=== PATIENT | female | born 1950 | race Caucasian/White ===

== ENCOUNTER 2018-09-26 09:45 | Outpatient (CLI) | payer MEDICARE, BC, SELFPAY ==
[2018-09-26 11:11] LABS: Abs Immature Grans 0.02 k/cumm (0.0-0.09); Absolute Basophil Count 0.02 k/cumm (0.0-0.2); Absolute Eosinophil Count 0.19 k/cumm (0.0-0.7); Absolute Lymphocyte Count 1.59 k/cumm (1.2-3.4); Absolute Monocyte Count 0.42 k/cumm (0.11-0.7); Absolute Neutrophil Count 2.71 k/cumm (1.2-6.7); Basophils % 0.4; Eosinophils % 3.8; HCT 39.7 % (36.0-46.0); HGB 13.1 g/dL (12.0-15.5); Immature Grans % 0.4; Lymphocytes % 32.1; Mean Corpuscular Hemoglobin 28.9 pg (27.0-33.0); Mean Corpuscular Volume 87.6 fL (80-95); Mean Platelet Volume 10.6 fL (8.0-11.0); Monocytes % 8.5; Neutrophils % 54.8; Platelet Count 214 x1000/uL (130-400); RBC 4.53 m/cumm (4.00-5.20); RBC Distribution Width 13.2 % (11.7-14.6); White Blood Cell Count 4.95 k/cumm (4.4-10.8)
[2018-09-26 12:25] LABS: ALT 42 U/L (12-78); AST 19 U/L (15-37); Alkaline Phosphatase 88 U/L (46-116); Anion Gap 8.5 mmol/L (3-11); BUN 18 mg/dL (7-18); Bilirubin, Total 0.3 mg/dL (0.2-1.0); C-Reactive Protein 0.57 mg/dL (0.0-0.3); CO2 30.5 mmol/L (21.0-32.0); CREATININE 0.82 mg/dL (0.55-1.02); Calcium 9.9 mg/dL (8.5-10.1); Chloride 103 mmol/L (98-107); Glucose 112 mg/dL (70-100); Potassium 4.2 mmol/L (3.5-5.1); Sodium 142 mmol/L (136-145); TSH (W/Ref FT4) 1.56 uIU/mL (0.358-3.74); Total Protein 7.2 g/dL (6.4-8.2)
[2018-09-26 14:52] LABS: Cholesterol 237 mg/dL (50-200); HDL Cholesterol 53 mg/dL (40-60); LDL CHOLESTEROL 159 mg/dL (<100); Triglyceride 153 mg/dL (30-150)
== END 2018-09-26 10:05 ==
PROVIDERS: PCP Family Medicine; Visit Provider Family Medicine
DX: I10 Essential (primary) hypertension (principal); E03.9 Hypothyroidism, unspecified; R53.83 Other fatigue; M06.9 Rheumatoid arthritis, unspecified; Z79.899 Other long term (current) drug therapy
CPT/HCPCS: 36415; 80053; 80061; 83721; 84443; 85025; 86140

== ENCOUNTER 2018-09-27 11:34 | Outpatient (REF) | payer MEDICARE, BC, SELFPAY ==
[2018-10-08 14:40] LABS: Helicobacter pylori Ag, Feces Negative (NEGAT)
== END 2018-09-27 11:54 ==
LOC: LBN 11:34
PROVIDERS: PCP Family Medicine; Visit Provider Family Medicine
DX: R10.9 Unspecified abdominal pain (principal); K21.0 Gastro-esophageal reflux disease with esophagitis
CPT/HCPCS: 87338

== ENCOUNTER 2019-03-04 02:35 | Outpatient (CLI) | payer MEDICARE, BC, SELFPAY ==
[2019-03-04 11:07] LABS: Abs Immature Grans 0.01 k/cumm (0.0-0.09); Absolute Basophil Count 0.02 k/cumm (0.0-0.2); Absolute Eosinophil Count 0.16 k/cumm (0.0-0.7); Absolute Lymphocyte Count 2.15 k/cumm (1.2-3.4); Absolute Monocyte Count 0.44 k/cumm (0.11-0.7); Absolute Neutrophil Count 3.42 k/cumm (1.2-6.7); Basophils % 0.3; Eosinophils % 2.6; HCT 41.8 % (36.0-46.0); HGB 13.5 g/dL (12.0-15.5); Immature Grans % 0.2; Lymphocytes % 34.7; Mean Corp. HGB Concentration 32.3 g/dL (32.0-36.0); Mean Corpuscular Hemoglobin 28.4 pg (27.0-33.0); Mean Platelet Volume 10.4 fL (8.0-11.0); Monocytes % 7.1; Neutrophils % 55.1; Platelet Count 209 x1000/uL (130-400); RBC 4.75 m/cumm (4.00-5.20); RBC Distribution Width 13.4 % (11.7-14.6)
[2019-03-04 11:15] LABS: ALT 34 U/L (12-78); AST 19 U/L (15-37); Albumin 4.2 g/dL (3.4-5.0); Alkaline Phosphatase 82 U/L (46-116); Anion Gap 10.1 mmol/L (3-11); BUN 24 mg/dL (7-18); Bilirubin, Total 0.3 mg/dL (0.2-1.0); C-Reactive Protein 0.29 mg/dL (0.0-0.3); CO2 29.9 mmol/L (21.0-32.0); CREATININE 0.95 mg/dL (0.55-1.02); Calcium 10.1 mg/dL (8.5-10.1); Chloride 101 mmol/L (98-107); Estimated GFR 58.33 (mL/min/1.73m2); Glucose 106 mg/dL (70-100); Potassium 4.1 mmol/L (3.5-5.1); Sodium 141 mmol/L (136-145); Total Protein 7.2 g/dL (6.4-8.2)
== END 2019-03-04 02:55 ==
PROVIDERS: PCP Family Medicine; Visit Provider Internal Medicine Rheumatology
DX: M06.9 Rheumatoid arthritis, unspecified (principal); Z79.899 Other long term (current) drug therapy
CPT/HCPCS: 36415; 80053; 85025; 86140

== ENCOUNTER 2019-08-21 02:07 | Outpatient (CLI) | payer MEDICARE, BC, SELFPAY ==
[2019-08-21 10:38] LABS: Abs Immature Grans 0.02 k/cumm (0.0-0.09); Absolute Basophil Count 0.02 k/cumm (0.0-0.2); Absolute Eosinophil Count 0.12 k/cumm (0.0-0.7); Absolute Monocyte Count 0.45 k/cumm (0.11-0.7); Basophils % 0.4; Eosinophils % 2.1; HCT 40.7 % (36.0-46.0); Immature Grans % 0.4; Lymphocytes % 35.7; Mean Corp. HGB Concentration 31.9 g/dL (32.0-36.0); Mean Corpuscular Hemoglobin 28.6 pg (27.0-33.0); Mean Corpuscular Volume 89.5 fL (80-95); Mean Platelet Volume 10.3 fL (8.0-11.0); Neutrophils % 53.4; Platelet Count 234 x1000/uL (130-400); RBC 4.55 m/cumm (4.00-5.20); RBC Distribution Width 13.3 % (11.7-14.6); White Blood Cell Count 5.61 k/cumm (4.4-10.8)
[2019-08-21 11:50] LABS: ALT 27 U/L (14-59); AST 16 U/L (15-37); Albumin 4.1 g/dL (3.4-5.0); Alkaline Phosphatase 86 U/L (46-116); Anion Gap 6.1 mmol/L (3-11); BUN 24 mg/dL (7-18); Bilirubin, Total 0.3 mg/dL (0.2-1.0); C-Reactive Protein 0.25 mg/dL (0.0-0.3); CO2 31.9 mmol/L (21.0-32.0); CREATININE 0.93 mg/dL (0.55-1.02); Calcium 9.9 mg/dL (8.5-10.1); Chloride 105 mmol/L (98-107); Estimated GFR 59.78 (mL/min/1.73m2); Glucose 107 mg/dL (70-100); Sodium 143 mmol/L (136-145); Total Protein 7.1 g/dL (6.4-8.2)
== END 2019-08-21 02:27 ==
PROVIDERS: PCP Family Medicine; Visit Provider Family Medicine
DX: M06.9 Rheumatoid arthritis, unspecified (principal); Z79.899 Other long term (current) drug therapy
CPT/HCPCS: 36415; 80053; 85025; 86140

== ENCOUNTER 2019-12-11 10:41 | Outpatient (CLI) | payer MEDICARE, BC, SELFPAY ==
[2019-12-11 13:08] LABS: Abs Immature Grans 0.01 k/cumm (0.0-0.09); Absolute Basophil Count 0.02 k/cumm (0.0-0.2); Absolute Eosinophil Count 0.12 k/cumm (0.0-0.7); Absolute Lymphocyte Count 1.99 k/cumm (1.2-3.4); Absolute Monocyte Count 0.42 k/cumm (0.11-0.7); Absolute Neutrophil Count 3.18 k/cumm (1.2-6.7); Basophils % 0.3; Eosinophils % 2.1; HCT 40.9 % (36.0-46.0); HGB 13.4 g/dL (12.0-15.5); Immature Grans % 0.2 %; Lymphocytes % 34.7; Mean Corp. HGB Concentration 32.8 g/dL (32.0-36.0); Mean Corpuscular Hemoglobin 28.8 pg (27.0-33.0); Mean Corpuscular Volume 87.8 fL (80-95); Monocytes % 7.3; Neutrophils % 55.4; Platelet Count 231 x1000/uL (130-400); RBC 4.66 m/cumm (4.00-5.20); RBC Distribution Width 13.5 % (11.7-14.6); White Blood Cell Count 5.74 k/cumm (4.4-10.8)
[2019-12-11 13:43] LABS: ALT 26 U/L (14-59); AST 16 U/L (15-37); Albumin 4.1 g/dL (3.4-5.0); Alkaline Phosphatase 87 U/L (46-116); Anion Gap 7.7 mmol/L (3-11); BUN 20 mg/dL (7-18); Bilirubin, Total 0.4 mg/dL (0.2-1.0); CO2 32.3 mmol/L (21.0-32.0); CREATININE 0.86 mg/dL (0.55-1.02); Calculated LDL 168 mg/dL (<100); Chloride 103 mmol/L (98-107); Cholesterol 263 mg/dL (<200); Glucose 98 mg/dL (74-106); HDL Cholesterol 55 mg/dL (40-60); Potassium 3.9 mmol/L (3.5-5.1); Sodium 143 mmol/L (136-145); TSH (W/Ref FT4) 1.99 uIU/mL (0.36-3.74); Total Protein 7.1 g/dL (6.4-8.2); Triglyceride 201 mg/dL (<150); Vitamin B12 585 pg/mL (193-986)
[2019-12-11 13:56] LABS: Vitamin D 25 Total 39.5 ng/ml (30-100)
== END 2019-12-11 11:01 ==
PROVIDERS: PCP Family Medicine; Visit Provider Family Medicine
DX: E03.9 Hypothyroidism, unspecified (principal); I10 Essential (primary) hypertension; K21.0 Gastro-esophageal reflux disease with esophagitis; Q38.3 Other congenital malformations of tongue; D64.9 Anemia, unspecified; K22.70 Barrett's esophagus without dysplasia; L40.50 Arthropathic psoriasis, unspecified
CPT/HCPCS: 36415; 80053; 80061; 82306; 85027; 82607; 84443; 85025

== ENCOUNTER 2020-03-02 01:05 | Outpatient (CLI) | payer MEDICARE, BC, SELFPAY ==
--- NOTE | 2020-03-02 10:45 | DI.MAMMO_ITS ---
EXAM: MAMMO SCREENING CLINICAL HISTORY: screening,Z12.39 TECHNIQUE: Mammograms were interpreted according to the usual protocol including computer analysis w [employer] CAD system, tomosynthesis and C-view imaging. COMPARISON: 2010 through 2017 FINDINGS: The breasts are composed of scattered fibroglandular densities, Breast Density category B. No suspicious masses or suspicious microcalcifications are seen. There are stable bilateral areas no dularity. No skin thickening or abnormal axillary lymph nodes are seen. There has been no significant change from prior exams. IMPRESSION: BI-RADS category 2, negative mammogram with benign findings. Yearly screening mammography is recomme nded. Breast density category B, scattered fibroglandular densities.
== END 2020-03-02 01:25 ==
PROVIDERS: PCP Family Medicine; Visit Provider Family Medicine
DX: Z12.31 Encounter for screening mammogram for malignant neoplasm of breast (principal)
CPT/HCPCS: 77063; 77067

== ENCOUNTER 2020-08-06 07:17 | Outpatient (CLI) | payer MEDICARE, BC, SELFPAY ==
[2020-08-10 23:15] LABS: Patient Race White; SARS-CoV-2 RNA Undetected (Undetected); SARS-CoV-2 Specimen Source Nasal
== END 2020-08-06 07:37 ==
PROVIDERS: PCP Family Medicine; Visit Provider Family Medicine
DX: J02.9 Acute pharyngitis, unspecified (principal); R59.0 Localized enlarged lymph nodes
CPT/HCPCS: U0003

== ENCOUNTER 2020-08-20 00:37 | Outpatient (CLI) | payer MEDICARE, BC, SELFPAY ==
[2020-08-20 12:35] LABS: Abs Immature Grans 0.01 10^3/uL (0.0-0.06); Absolute Basophil Count 0.04 10^3/uL (0.0-0.2); Absolute Eosinophil Count 0.09 10^3/uL (0.0-0.7); Absolute Lymphocyte Count 2.16 10^3/uL (1.2-3.4); Absolute Monocyte Count 0.66 10^3/uL (0.1-0.8); Absolute Neutrophil Count 3.49 10^3/uL (1.2-6.7); Basophils % 0.6; Eosinophils % 1.4; HCT 40.3 % (36.0-46.0); HGB 13.4 g/dL (11.2-15.7); Immature Grans % 0.2; Lymphocytes % 33.5; MCH 28.8 pg (27.0-33.0); MCHC 33.3 % (32.0-36.0); MCV 86.5 fL (80-95); MPV 10.5 fL (8.0-11.0); Monocytes % 10.2; Neutrophils % 54.1; Nucleated RBC 0 %; Platelet Count 226 10^3/uL (130-400); RBC 4.66 10^6/uL (3.93-5.22); RDW 13.1 % (11.7-14.6); RDW-SD 40.6 fL; WBC 6.45 10^3/uL (4.4-10.8)
[2020-08-20 12:45] LABS: ALT 53 U/L (14-59); AST 27 U/L (15-37); Albumin 4.2 g/dL (3.4-5.0); Alkaline Phosphatase 86 U/L (46-116); Anion Gap 8.6 mmol/L (3-11); BUN 18 mg/dL (7-18); Bilirubin, Total 0.3 mg/dL (0.2-1.0); C-Reactive Protein 0.21 mg/dL (0.0-0.3); CO2 30.4 mmol/L (21.0-32.0); CREATININE 1.02 mg/dL (0.55-1.02); Calcium 9.8 mg/dL (8.5-10.1); Chloride 101 mmol/L (98-107); Estimated GFR 53.58 (mL/min/1.73m2); Glucose 87 mg/dL (74-106); Potassium 3.4 mmol/L (3.5-5.1); Sodium 140 mmol/L (136-145); Total Protein 7.3 g/dL (6.4-8.2)
== END 2020-08-20 00:57 ==
PROVIDERS: Internal Medicine Rheumatology; PCP Family Medicine; Visit Provider Family Medicine
DX: L40.50 Arthropathic psoriasis, unspecified (principal); Z79.899 Other long term (current) drug therapy
CPT/HCPCS: 36415; 80053; 85025; 86140

== ENCOUNTER 2021-01-05 08:50 | Emergency (ER) | payer MEDICARE, BC, SELFPAY ==
[2021-01-05 08:55] VITALS: BP 141/63; PULSE 78; RESP 12; TEMP 36.7; O2SAT 98
--- NOTE | 2021-01-05 09:00 | DI.RAD_ITS ---
EXAM: XR ANKLE LT COMPLETE CLINICAL HISTORY: fall/twist last night. TECHNIQUE: 2D digital imaging was performed. COMPARISON: CR RIGHT ANKLE COMPLETE from 01/30/2013 FINDINGS: There is mild soft tissue swelling but no fracture or widening of the mortise. No osteochondral defe cts of the talar dome. The base of the 5th metatarsal is intact. Small inferior calcaneal spur is n oted. There is no evidence of osseous tarsal coalition. IMPRESSION: DATA REPOSITORY: RADIATION DOSE DELIVERED:
--- NOTE | 2021-01-05 09:28 | ED.GENADUL_ITS ---
Discharge Plan Disposition Patient Disposition: HOME Condition: Stable Discharge Details Clinical Impression: Ankle sprain Primary Care Provider: Jessica Ken ED Provider: Tavo Baum Home Meds and New Rx's Prescriptions: Continued acetaminophen [Tylenol Arthritis] 650 mg tablet extended release 650 mg PO DAILY PRNRF: 0 cholestyramine (with sugar) 4 gram powder in packet 4 gm PO DAILY RF: 0 levothyroxine 50 mcg tablet 50 mcg PO DAILY Qty: 90 RF: 12 hydrochlorothiazide 25 mg tablet 25 mg PO DAILY Qty: 90 RF: 12 Enbrel SureClick 50 MG/1 ML pen injector 50 mg SQ QWEEK RF: 0 ascorbic acid (vitamin C) 1,000 MG tablet 1 tab PO DAILY RF: 0 cetirizine [Zyrtec] 10 MG tablet 1 tab PO DAILY RF: 0 Acidophilus-Pectin 1 EACH capsule 1 cap PO DAILY RF: 0 multivitamin 1 EACH capsule 1 cap PO DAILY RF: 0 omega-3 fatty acids-fish oil 1 EACH capsule 1 cap PO DAILY RF: 0 (DME) BD Multifit Reusable Syringe 1 EACH syringe 1 ea Miscellaneous as directed Qty: 12 RF: 12 calcium carbonate-vitamin D3 1 EACH tablet 1 ea PO DAILY RF: 0 turmeric-turmeric root extract 1 EACH capsule 1 ea PO DAILY RF: 0 DGL 750 mg PO DAILY RF: 0 syringe 20ML BD See Rx Instructions IM .Q4 weeks Qty: 12 RF: 4 triamcinolone acetonide 0.1 % cream 1 applic Topical DAILY PRN (Reason: rash) Qty: 80 RF: 2 famotidine 40 mg tablet 40 mg PO QHS Qty: 90 RF: 4 sumatriptan succinate 100 mg tablet 100 mg PO ONCE Qty: 9 RF: 12 (DME) BD Regular Bevel [place] 21 gauge x 1 needle 1 ea IM as directed Qty: 12 RF: 0 fluconazole [Diflucan] 150 mg tablet 150 mg PO Q3D Qty: 1 RF: 1 ozuzrje-kurwcqeqxh-POT-caff [Fiorinal-Codeine #3] 19-50-343-40 mg capsule 1 cap PO TID PRN PRN (Reason: headache) Qty: 60 RF: 0 omeprazole 40 mg capsule,delayed release(DR/EC) 40 mg PO DAILY Qty: 90 RF: 4 folic acid 1 mg tablet 1 mg PO DAILY Qty: 90 RF: 12 estradiol [Vagifem] 10 mcg tablet 10 mcg VG 2X Week Qty: 25 RF: 12 cyanocobalamin (vitamin B-12) 1,000 mcg/mL solution 1,000 mcg IM month Qty: 6 RF: 12 Discharge Instructions Instructions: Ankle Sprain (ED) Additional Instructions: Wear splint as needed, advance activity as tolerated. Rest, elevate, cool compresses every 2 hours for 20 minutes. Ynqk-sms-yfaqddf medication such as Tylenol as directed for discomfort. Please watch for new or worsening symptoms and return to the ER for any concerns. I do recommend following up with your primary care provider in the next 5-7 days for reevaluation Medical Decision Making 70-year-old female, not anticoagulated, presents for left ankle injury she sustained last night. Stepped awkwardly, missing the last step, falling onto the stair landing, did not fall down the stairs. She did not strike her head. Denies any other injuries. Will obtain x-ray of the left ankle and reassess. X-ray of the left ankle read by radiology as soft tissue swelling but no fracture or dislocation. Discussed x-ray findings with patient. We discussed disposition. She is agreeable to a ankle splint but declines crutches or cane. Medical Records Medical records reviewed: Yes I reviewed the patient's medical records. HPI General Mode of arrival: ambulatory . Date/Time Provider Initiated Documentation: 01/05/21 09:00 . Limitations to Documentation: no limitations . Information obtained by: patient . HPI Narrative: This is a 70-year-old female, past medical history of psoriatic arthritis, presenting to the ER today complaining of a left ankle-foot injury she sustained yesterday. She reports that she was wearing sandals, slipped, missed the last stair and fell onto the stairs landing, did not fall down the stairs. In the process she twisted her left foot and ankle. She denies any other injuries. She denies striking her head, anticoagulation, neck pain, headache, visual change, chest pain, shortness of breath abdominal pain, nausea or vomiting. She denies any numbness or weakness. Reports tingling last night in her ankle but this has resolved. She is able to ambulate unassisted but reports the pain is worse when she ambulates, otherwise it is mild at rest. She has applied ice with minimal improvement of her symptoms. No symptoms prior to the fall. Related Data Home Medications Medication Instructions Recorded Confirmed Acidophilus-Pectin 1 cap PO DAILY 01/16/13 06/07/20 Enbrel SureClick 50 mg SQ QWEEK 01/16/13 06/07/20 ascorbic acid (vitamin C) 1 tab PO DAILY 01/16/13 06/07/20 cetirizine [Zyrtec] 1 tab PO DAILY 01/16/13 06/07/20 multivitamin 1 cap PO DAILY 01/16/13 06/07/20 omega-3 fatty acids-fish oil 1 cap PO DAILY 01/16/13 06/07/20 BD Multifit Reusable Syringe #12 syringe 09/23/13 06/07/20 Dgl 750 mg PO DAILY 12/24/17 06/07/20 calcium carbonate-vitamin D3 1 ea PO DAILY 12/24/17 06/07/20 turmeric-turmeric root extract 1 ea PO DAILY 12/24/17 06/07/20 acetaminophen 650 mg 650 mg PO DAILY PRN tab 06/20/18 06/07/20 tablet,extended release syringe 20ML BD See Rx Instructions IM .Q4 weeks 07/16/18 06/07/20 #12 triamcinolone acetonide 0.1 % 1 applic TOPICAL DAILY PRN #80 gm 08/15/18 06/07/20 topical cream cholestyramine (with sugar) 4 gram 4 gm PO DAILY each 06/12/19 06/07/20 powder for susp in a packet famotidine 40 mg tablet 40 mg PO QHS #90 tab 10/30/19 06/07/20 sumatriptan succinate 100 mg tablet 100 mg PO ONCE #9 tab-cap 01/13/20 06/07/20 needle (disp) 21 G 21 gauge x 1 #12 ndl 01/16/20 06/07/20 fluconazole 150 mg tablet 150 mg PO Q3D #1 tab 09/06/20 pephitx-lbyaexhqnf-NES-caffeine 30 1 cap PO TID PRN PRN #60 tab-cap 09/27/20 mg-50 mg-325 mg-40 mg capsule cyanocobalamin (vitamin B-12) 1,000 mcg IM month #6 vial 12/10/20 1,000 mcg/mL injection solution estradiol 10 mcg vaginal tablet 10 mcg VG 2X Week #25 tab-cap 12/10/20 folic acid 1 mg tablet 1 mg PO DAILY #90 tab 12/10/20 omeprazole 40 mg capsule,delayed 40 mg PO DAILY #90 cap 12/10/20 release hydrochlorothiazide 25 mg tablet 25 mg PO DAILY #90 tab-cap 12/14/20 12/14/20 levothyroxine 50 mcg tablet 50 mcg PO DAILY #90 tab-cap 12/14/20 12/14/20 Previous Rx's Medication Instructions Recorded syringe 20ML BD See Rx Instructions IM .Q4 weeks 07/16/18 #12 triamcinolone acetonide 0.1 % 1 applic TOPICAL DAILY PRN #80 gm 08/15/18 topical cream famotidine 40 mg tablet 40 mg PO QHS #90 tab 10/30/19 sumatriptan succinate 100 mg tablet 100 mg PO ONCE #9 tab-cap 01/13/20 needle (disp) 21 G 21 gauge x 1 #12 ndl 01/16/20 fluconazole 150 mg tablet 150 mg PO Q3D #1 tab 09/06/20 zcmcacp-lcwfoxhvvv-PBY-caffeine 30 1 cap PO TID PRN PRN #60 tab-cap 09/27/20 mg-50 mg-325 mg-40 mg capsule cyanocobalamin (vitamin B-12) 1,000 mcg IM month #6 vial 12/10/20 1,000 mcg/mL injection solution estradiol 10 mcg vaginal tablet 10 mcg VG 2X Week #25 tab-cap 12/10/20 folic acid 1 mg tablet 1 mg PO DAILY #90 tab 12/10/20 omeprazole 40 mg capsule,delayed 40 mg PO DAILY #90 cap 12/10/20 release hydrochlorothiazide 25 mg tablet 25 mg PO DAILY #90 tab-cap 12/14/20 levothyroxine 50 mcg tablet 50 mcg PO DAILY #90 tab-cap 12/14/20 Allergies Allergy/AdvReac Type Severity Reaction Status Date / Time No Known Allergies Allergy Unverified 01/05/21 08:59 General Stated Complaint: Orthopedic BETTY: 3 Review of Systems Constitutional Constitutional: Denies headache(s) and Denies weakness ENT Ears, Nose, Mouth, and Throat: Denies headache(s) and Denies neck pain Cardiovascular Cardiovascular: Denies chest pain and Denies dyspnea Respiratory Respiratory: Denies dyspnea Gastrointestinal Gastrointestinal: Denies abdominal pain, Denies nausea and Denies vomiting Musculoskeletal Musculoskeletal: Denies back pain, Denies neck pain, Denies numbness, Reports stiffness and Reports tingling Neurologic Neurologic: Denies headache(s), Denies numbness, Reports tingling and Denies weakness Hematologic/Lymphatic Hematologic/Lymphatic: Denies easy bleeding and Denies easy bruising [facility] Medical History Abdominal pain Anemia Anemia 09/06/02 TIBC 328/Hct 35, Vit B12 730 + H.Pylori resolved. repeat E GD/colonoscopy/hematology consult-resolved. 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) EGD-HIATAL HERNIA Barretts esophagus Boil of buttock 06/08/16 Boil of buttock (06/08/16) Calculus of gallbladder and bile duct w/cholecystitis w/o obstruction 12/24/15 Calculus of gallbladder without cholecystitis without obstruction (12/24/15) Cataract Colon polyp Cyst of finger Essential hypertension (07/09/13) Facial basal cell cancer Floater, vitreous OD-NEW Gastric ulcer (05/17/15) Gastroesophageal reflux disease with esophagitis EGD-Dr.K Dorsey 09/2013-Sanchez's Hiatal hernia Generalized abdominal pain 03/23/16 Generalized abdominal pain (03/23/16) GERD (gastroesophageal reflux disease) Heart murmur echo--no valvular abnormality, systolic murmur age 11. 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 intervertebral disc scoliosis and marked DJD DDD L4-5 S1 Migraine (05/11/14) Osteopenia Osteopenia Polymyalgia rheumatica 09/06/07 Psoriasis Psoriatic arthritis Tinnitus, bilateral (12/28/15) Tongue anomaly Uterine prolapse 09/06/03 s/p hysterectomy Uterine prolapse (09/06/03) Vaginal atrophy Vitamin B 12 deficiency (12/23/15) Vitreous detachment OU-STABLE Vitreous floater Watery diarrhea Watery diarrhea (02/25/15) Surgical History BAKERS CYST (~1979) Biopsy of breast microcalcifications Cholecystectomy (03/15/16) Colonoscopy - IV Sedation Endoscopy H/O endoscopy H/O knee surgery dickerson's cyst History of endoscopy History of knee surgery History of laparoscopic cholecystectomy Hx laparoscopic cholecystectomy 03/08/16 S/P breast biopsy microcalcifications S/P cholecystectomy 03/08/16 Status post breast biopsy Status post cholecystectomy Family History Mother , 88 Dementia Stroke Father , 80 Heart disease Lung cancer Brother , ACCIDENTAL at age 36. No problems noted. Brother Diabetes Heart disease Brother Esophageal cancer Maternal Grandfather , 80 Colon cancer Paternal Grandfather , 75 Dementia Maternal Grandmother , 80 Stroke Paternal Grandmother Stroke Daughter No problems noted. Daughter No problems noted. Social History Smoking/Tobacco Use Status: Never Second Hand Exposure: No Smoking risk assessment performed?: Yes Alcohol Intake: never Drug use: Never Substance use type: does not use and other Details: Medical marijuana Caregiver/Support person: No Household members: spouse, family and other Details: Disabled daughter, grandson Housing: house Communication Needs: None Do you need help understanding health information?: Rarely Pets and animals: No Sexually active: No Do you think of yourself as: straight/heterosexual Current gender identity: female and decline to answer What is your relationship status?: How often do you talk on the phone with friends or family?: once per week How often do you get together with friends or relatives?: decline to answer How often do you attend spiritism or sabianist services?: decline to answer Do you belong to any clubs or organized social groups?: no Panel score (0-1 are the most socially isolated patients): 1 What type of physical activity do you participate in: walking and yoga Duration: 30-45 minutes/day Frequency: daily Judy/Scientology: No preference Special judy needs: No Seatbelt use: always Do you feel safe at home: Yes Do you feel safe in your relationship?: Yes Exam Const General: cooperative, healthy appearing, comfortable and no acute distress Orientation: alert and awake [facility] Head: normal to inspection, normocephalic and atraumatic Eyes General: appearance normal, both eyes and all related structures Conjunctivae: conjunctivae normal Neck Neck: normal visual inspection, full ROM, trachea midline and supple Resp Effort & Inspection: normal respiratory effort and able to speak in complete sentences Cardio Rate: regular rate Rhythm: regular rhythm Skin General skin exam: no rashes or lesions noted Neuro General: patient alert, patient awake, moves all extremities and no focal motor deficits Cognition: normal cognition Speech: speech normal Gait: antalgic Motor: muscle tone normal throughout Sensory Exam: no sensory deficits noted Extrem General: full ROM and capillary refill normal Left lower extremity: full ROM, normal capillary refill, ankle Details: abnormal to inspection, tenderness Location: of the lateral malleolus, swelling Details: laterally, normal ROM and ecchymosis and foot Details: normal capillary refill and toes with normal ROM; no tenderness Psych Appearance: grossly normal Mental Status: mental status grossly normal Course Vital Signs Vital signs: Vital Signs Temperature 36.7 C 01/05/21 08:55 Pulse 78 01/05/21 08:55 Respiratory Rate 12 01/05/21 08:55 Blood Pressure 141/63 H 01/05/21 08:55 Pulse Oximetry 98 01/05/21 08:55 Temperature 36.7 C 01/05/21 08:55 Temperature Source Skin 01/05/21 08:55 Pulse 78 01/05/21 08:55 Respiratory Rate 12 01/05/21 08:55 Respiratory Effort 01/05/21 09:14 Blood Pressure 141/63 H 01/05/21 08:55 Pulse Oximetry 98 01/05/21 08:55 Oxygen Delivery Method Room Air 01/05/21 08:55 Oxygen Flow Rate 0 01/05/21 08:55 Pain Level 7 01/05/21 09:14 Comment 01/05/21 08:55
[2021-01-05 10:22] VITALS: BP 154/97; PULSE 87; RESP 14; TEMP 36.4; O2SAT 98
== END 2021-01-05 09:59 | disposition home or self-care (01) ==
PROVIDERS: Emergency Provider Physician Assistant; PCP Family Medicine
DX: S93.492A Sprain of other ligament of left ankle, initial encounter (principal); W18.43XA Slipping, tripping and stumbling without falling due to stepping from one level to another, initial encounter
CPT/HCPCS: 99283; 73610; 99282

== ENCOUNTER 2021-01-17 03:21 | Outpatient (CLI) | payer MEDICARE, BC, SELFPAY ==
[2021-01-17 10:48] LABS: Source Nasal/Nares
[2021-01-17 16:19] LABS: COVID-19 PCR Negative (Negative)
== END 2021-01-17 03:22 | disposition home or self-care (01) ==
LOC: LBO 03:22
PROVIDERS: PCP Family Medicine; Visit Provider Internal Medicine Gastroenterology
DX: Z20.822 Contact with and (suspected) exposure to COVID-19 (principal); Z01.818 Encounter for other preprocedural examination
CPT/HCPCS: 87635

== ENCOUNTER 2021-02-08 02:13 | Outpatient (CLI) | payer MEDICARE, BC, SELFPAY ==
[2021-02-08 13:01] LABS: Abs Immature Grans 0.02 10^3/uL (0.0-0.06); Absolute Basophil Count 0.05 10^3/uL (0.0-0.2); Absolute Eosinophil Count 0.16 10^3/uL (0.0-0.7); Absolute Monocyte Count 0.41 10^3/uL (0.1-0.8); Absolute Neutrophil Count 3.07 10^3/uL (1.2-6.7); Basophils % 0.8; Eosinophils % 2.7; HCT 40.1 % (36.0-46.0); HGB 12.8 g/dL (11.2-15.7); Immature Grans % 0.3; Lymphocytes % 38.3; MCH 28.8 pg (27.0-33.0); MCHC 31.9 % (32.0-36.0); MCV 90.3 fL (80-95); MPV 10.1 fL (8.0-11.0); Monocytes % 6.8; Neutrophils % 51.1; Nucleated RBC 0 %; Platelet Count 221 10^3/uL (130-400); RBC 4.44 10^6/uL (3.93-5.22); RDW-SD 43.1 fL; WBC 6.01 10^3/uL (4.4-10.8)
[2021-02-08 13:07] LABS: ALT 28 U/L (14-59); AST 14 U/L (15-37); Albumin 3.9 g/dL (3.4-5.0); Alkaline Phosphatase 91 U/L (46-116); Anion Gap 5.6 mmol/L (3-11); BUN 17 mg/dL (7-18); Bilirubin, Total 0.4 mg/dL (0.2-1.0); C-Reactive Protein 0.22 mg/dL (0.0-0.3); CO2 32.4 mmol/L (21.0-32.0); CREATININE 0.9 mg/dL (0.55-1.02); Chloride 105 mmol/L (98-107); Glucose 102 mg/dL (74-106); Potassium 5.1 mmol/L (3.5-5.1); Sodium 143 mmol/L (136-145); Total Protein 6.9 g/dL (6.4-8.2)
== END 2021-02-08 02:14 | disposition home or self-care (01) ==
LOC: LOS 02:13
PROVIDERS: PCP Family Medicine; Visit Provider Internal Medicine Rheumatology
DX: L40.50 Arthropathic psoriasis, unspecified (principal); Z79.899 Other long term (current) drug therapy
CPT/HCPCS: 36415; 80053; 85025; 86140

== ENCOUNTER 2021-03-08 02:01 | Outpatient (CLI) | payer MEDICARE, BC, SELFPAY ==
--- NOTE | 2021-03-08 10:52 | DI.MAMMO_ITS ---
Exam(s) MAMMO SCREENING EXAM: MAMMO SCREENING CLINICAL HISTORY: screening,Z12.39 TECHNIQUE: Mammograms were interpreted according to the usual protocol including computer analysis w [employer] CAD system, tomosynthesis and C-view imaging. COMPARISON: FINDINGS: The breasts are of moderate density with fairly symmetrical distribution of fibroglandular tissue. N o dominant mass or clumped microcalcification is identified in either breast. The current examinatio n is compared with multiple previous examinations including February 2020 and there is question of increas ed prominence of a focal area of asymmetric density projected in the upper outer quadrant of the left breast roughly 6-7 cm from the nipple. Additional mammographic views of this area are requested to include CC and MLO spot compression views of the left breast. No other significant change seen. IMPRESSION: Additional mammographic views are requested as described above to evaluate question focal lesion of t he upper outer quadrant of the left breast. Breast ultrasound may be indicated as well depending on the results additional mammographic views. BI-RADS Category 0 - Assessment Incomplete: Need additional imaging evaluation Breast Density - Category B - Scattered areas of fibroglandular density
== END 2021-03-08 02:21 ==
PROVIDERS: PCP Family Medicine; Visit Provider Family Medicine
DX: Z12.31 Encounter for screening mammogram for malignant neoplasm of breast (principal); R92.8 Other abnormal and inconclusive findings on diagnostic imaging of breast
CPT/HCPCS: 77063; 77067

== ENCOUNTER 2021-03-22 01:09 | Outpatient (CLI) | payer MEDICARE, BC, SELFPAY ==
--- NOTE | 2021-03-22 | DI.US_ITS ---
Exam(s) MG MAMMO SCREEN CALL BACK UNI US BREAST LT LIMITED EXAM: MG MAMMO SCREEN CALL BACK UNI and U/S breast LT limited CLINICAL HISTORY: F/U MAMMO, ? FOCAL LESION UPPER OUTER QUADRANT LT BREAST. TECHNIQUE: Craniocaudal and mediolateral oblique Full Field Digital Mammography views of the left br east with Computer Aided Diagnosis followed by Tomosynthesis and left breast ultrasound. COMPARISON: Priors available for comparison. FINDINGS: Mammography/Tomosynthesis: Masses/Architectural Distortion: There is again seen a lobulated ovoid density in the upper-outer dov drant of the left breast. This has a similar appearance compared to prior mammograms, specifically . There are few coarse calcifications now associated with the mass. Microcalcifictions: No suspicious pleomorphic-type are seen. Skin Thickening/Nipple Retraction: None. Left breast US: Echotexture: Normal appearance of the glandular tissue. Shadowing: No suspicious foci. Cyst: None. Solid lesions: At the 1 o'clock position 6 cm from the nipple in the left breast, there is an elongat ed radially oriented 1.1 x 0.2 x 0.5 cm isoechoic mass present. There are few echogenic foci which a ppear to correspond to the calcifications on the mammogram. No acoustic shadowing or enhancement is noted. Ductal dilation: None. IMPRESSION: 1. No definite evidence for malignancy. 2. A six-month follow-up left mammogram and ultrasound is recommended for re-evaluation. 3. The findings were discussed with the patient on the date of the examination. BI-RADS Category 3 - 6 month - Probably Benign Finding: Recommend follow-up imaging in 6 months Breast Density - Category B - Scattered areas of fibroglandular density Breast density Category C or D implies that the patient has dense breast tissue. Dense breast tissue can make it harder to find cancer on a mammogram. Dense breast tissue is also associated with an incr eased risk of breast cancer. This information about the result of the mammogram report was provided to the patient to raise their awareness. Use this report when you speak with the patient about their risks for breast cancer, which includes their family history. At that time, you may recommend additional screening tests (Ultrasoun d or MRI) as these tests may add significant information. A negative radiographic report should not delay biopsy if a dominant or clinically suspicious mass is present. Up to ten percent of cancers are not identified on mammography. A negative report may reinforce clinical impression. Adenosis and dense breasts may obscure an underlying neoplasm. False positive reports average 6 to 10%. Patient will receive a letter notifying them of these results.
== END 2021-03-22 01:29 ==
PROVIDERS: PCP Family Medicine; Visit Provider Family Medicine
DX: Z12.31 Encounter for screening mammogram for malignant neoplasm of breast (principal); R92.8 Other abnormal and inconclusive findings on diagnostic imaging of breast
CPT/HCPCS: 76642; 77063; 77067

== ENCOUNTER 2021-04-15 10:47 | Outpatient (CLI) | payer MEDICARE, BC, SELFPAY ==
[2021-04-16 12:59] LABS: COVID-19 RT-PCR UVMMC Result Negative (Negative)
== END 2021-04-15 10:48 | disposition home or self-care (01) ==
PROVIDERS: PCP Family Medicine; Visit Provider Family Medicine
DX: Z20.822 Contact with and (suspected) exposure to COVID-19 (principal); R51.9 Headache, unspecified
CPT/HCPCS: U0003; U0005

== ENCOUNTER 2021-06-25 14:08 | Outpatient (REF) | payer MEDICARE, BC, SELFPAY ==
[2021-06-25 16:22] LABS: Bilirubin Negative (Negative); Blood Trace-intact (Negative); Clarity Clear (Clear); Glucose Negative (Negative); Ketones Negative (Negative); Leukocyte Esterase Moderate (Negative); Nitrite Negative (Negative); Specific Gravity 1.015 (1.005-1.025); Urobilinogen 0.2 EU/dL (Up TO 0.2); pH 6.5 (5-8)
[2021-06-25 16:37] LABS: Bacteria Few HPF (Negative); C & S Indicated? Yes; Casts Negative LPF (Negative); Crystals Negative HPF (Negative); Epithelial Cells Few HPF (Negative); Mucus Negative (Negative); Other Cells Few Renal (Negative); WBC 20-50 HPF (0-5)
== END 2021-06-25 14:09 | disposition home or self-care (01) ==
LOC: LBN 14:08
PROVIDERS: PCP Family Medicine; Visit Provider Nurse Practitioner Family
DX: N76.0 Acute vaginitis (principal); R82.998 Other abnormal findings in urine
CPT/HCPCS: 81003; 81015; 87086; 87480; 87510; 87660

== ENCOUNTER 2021-08-18 02:40 | Outpatient (CLI) | payer MEDICARE, BC, SELFPAY ==
[2021-08-18 14:33] LABS: Abs Immature Grans 0.02 10^3/uL (0.0-0.06); Absolute Basophil Count 0.02 10^3/uL (0.0-0.2); Absolute Eosinophil Count 0.14 10^3/uL (0.0-0.7); Absolute Lymphocyte Count 2.08 10^3/uL (1.2-3.4); Absolute Monocyte Count 0.54 10^3/uL (0.1-0.8); Absolute Neutrophil Count 3.09 10^3/uL (1.2-6.7); Basophils % 0.3; Eosinophils % 2.4; HCT 39.1 % (36.0-46.0); HGB 12.9 g/dL (11.2-15.7); Immature Grans % 0.3; Lymphocytes % 35.3; MCH 28.2 pg (27.0-33.0); MCV 85.6 fL (80-95); MPV 9.9 fL (8.0-11.0); Monocytes % 9.2; Neutrophils % 52.5; Nucleated RBC 0 %; Platelet Count 202 10^3/uL (130-400); RBC 4.57 10^6/uL (3.93-5.22); RDW 12.8 % (11.7-14.6); RDW-SD 39.6 fL; WBC 5.89 10^3/uL (4.4-10.8)
[2021-08-18 15:57] LABS: Alkaline Phosphatase 90 U/L (46-116); BUN 18 mg/dL (7-18); Bilirubin, Total 0.3 mg/dL (0.2-1.0); CREATININE 0.9 mg/dL (0.55-1.02); Calcium 10.5 mg/dL (8.5-10.1); Glucose 116 mg/dL (74-106); Potassium 3.8 mmol/L (3.5-5.1); Sodium 142 mmol/L (136-145)
[2021-08-18 15:58] LABS: ALT 32 U/L (14-59); AST 14 U/L (15-37); Anion Gap 6.2 mmol/L (3-11); C-Reactive Protein 0.92 mg/dL (0.0-0.3); CO2 31.8 mmol/L (21.0-32.0); Chloride 104 mmol/L (98-107)
== END 2021-08-18 02:41 | disposition home or self-care (01) ==
LOC: LBO 02:40
PROVIDERS: PCP Family Medicine; Visit Provider Internal Medicine Rheumatology
DX: I10 Essential (primary) hypertension (principal); L40.50 Arthropathic psoriasis, unspecified
CPT/HCPCS: 36415; 80053; 85025; 86140

== ENCOUNTER 2021-09-19 02:08 | Outpatient (CLI) | payer MEDICARE, BC, SELFPAY ==
--- NOTE | 2021-09-19 08:15 | DI.MAMMO_ITS ---
Exam(s) MG MAMMO DIAGNOSTIC UNI EXAM: MG MAMMO DIAGNOSTIC UNI -LEFT AND COMPLETE LEFT BREAST ULTRASOUND CLINICAL HISTORY: 3-6 mo f/u,F/U INCONCLUSIVE, ABNL MAMMO, R92.8. TECHNIQUE: Unilateral spot mammographic images were obtained with 3D tomosynthesis technique and uti lizing computer aided detection (CAD). WE also performed complete left breast ultrasound including all 4 quadrants as well as the retroareol ar region and left axilla. COMPARISON: Prior mammograms dating back to 2012, prior ultrasound examinations were also reviewed. FINDINGS: DIAGNOSTIC LEFT BREAST MAMMOGRAM: The fibroglandular pattern in the left breast remains unchanged. Microcalcifications in asymmetric de nsity upper-outer quadrant are unchanged from 03/22/2021 and remain benign appearance. There are no new spiculated masses and no new malignant-appearing microcalcification groups in the le ft breast. COMPLETE LEFT BREAST ULTRASOUND: At the 1 o'clock position previously described finding is unchanged. On today's study is shown to contain the calcifications seen on the mammogram, this measuring approx imately 1 millimeter. This finding has benign appearance. No other focal findings in all 4 quadrants of the left breast. Left axilla is negative for significant adenopathy. IMPRESSION: Continued benign appearance of left breast findings. Appropriate follow-up is to keep this patient on a yearly mammogram schedule, this implying that her next bilateral mammogram would be in March 2022, with earlier imaging if a self detected breast change is noted.. The patient was informed of the findings and follow-up recommendations prior to leaving the [facility]. BI-RADS Category 2 - Benign Findings Breast Density - Category B - Scattered areas of fibroglandular density Breast density Category C or D implies that the patient has dense breast tissue. Dense breast tissue can make it harder to find cancer on a mammogram. Dense breast tissue is also associated with an incr eased risk of breast cancer. This information about the result of the mammogram report was provided to the patient to raise their awareness. Use this report when you speak with the patient about their risks for breast cancer, which includes their family history. At that time, you may recommend additional screening tests (Ultrasoun d or MRI) as these tests may add significant information. A negative radiographic report should not delay biopsy if a dominant or clinically suspicious mass is present. Up to ten percent of cancers are not identified on mammography. A negative report may reinforce clinical impression. Adenosis and dense breasts may obscure an underlying neoplasm. False positive reports average 6 to 10%. Patient will receive a letter notifying them of these results.
--- NOTE | 2021-09-19 08:15 | DI.US_ITS ---
Exam(s) US BREAST LT COMPLETE EXAM: US BREAST LT COMPLETE CLINICAL HISTORY: 3-6 mo f/u,F/U INCONCLUSIVE, ABNL EXAM, R92.8. TECHNIQUE: Complete ultrasound of the breast was performed including all 4 quadrants, the retroareo lar region, and the ipsilateral axilla. COMPARISON: Prior mammograms were reviewed. FINDINGS: See combined report IMPRESSION: Appropriate follow-up is . BI-RADS Category 2 - Benign Findings Breast Density - Category B - Scattered areas of fibroglandular density Breast density Category C or D implies that the patient has dense breast tissue. Dense breast tissue can make it harder to find cancer on a mammogram. Dense breast tissue is also associated with an incr eased risk of breast cancer. This information about the result of the mammogram report was provided to the patient to raise their awareness. Use this report when you speak with the patient about their risks for breast cancer, which includes their family history. At that time, you may recommend additional screening tests (Ultrasoun d or MRI) as these tests may add significant information. A negative radiographic report should not delay biopsy if a dominant or clinically suspicious mass is present. Up to ten percent of cancers are not identified on mammography. A negative report may reinforce clinical impression. Adenosis and dense breasts may obscure an underlying neoplasm. False positive reports average 6 to 10%. Patient will receive a letter notifying them of these results.
== END 2021-09-19 02:28 ==
PROVIDERS: PCP Family Medicine; Visit Provider Family Medicine
DX: R92.8 Other abnormal and inconclusive findings on diagnostic imaging of breast (principal); N63.21 Unspecified lump in the left breast, upper outer quadrant; R92.0 Mammographic microcalcification found on diagnostic imaging of breast
CPT/HCPCS: 76642; 77061; 77065; G0279

== ENCOUNTER 2022-02-16 01:52 | Outpatient (CLI) | payer MEDICARE, SELFPAY ==
[2022-02-16 12:43] LABS: HCT 42.4 % (36.0-46.0); HGB 13.3 g/dL (11.2-15.7); MCH 27.9 pg (27.0-33.0); MCHC 31.4 % (32.0-36.0); MCV 89 fL (80-95); MPV 10.8 fL (8.0-11.0); Platelet Count 204 10^3/uL (130-400); RBC 4.76 10^6/uL (3.93-5.22); RDW 12.9 % (11.7-14.6); RDW-SD 42.2 fL; WBC 6.07 10^3/uL (4.4-10.8)
[2022-02-16 12:59] LABS: ALT 24 U/L (14-59); AST 15 U/L (15-37); Alkaline Phosphatase 85 U/L (46-116); BUN 19 mg/dL (7-18); Bilirubin, Total 0.3 mg/dL (0.2-1.0); C-Reactive Protein 0.18 mg/dL (0.0-0.3); CREATININE 0.9 mg/dL (0.55-1.02); Chloride 104 mmol/L (98-107); Glucose 104 mg/dL (74-106); Potassium 4.9 mmol/L (3.5-5.1); Sodium 141 mmol/L (136-145)
== END 2022-02-16 01:53 | disposition home or self-care (01) ==
LOC: LOS 01:52
PROVIDERS: PCP Family Medicine; Visit Provider Internal Medicine Rheumatology
DX: L40.50 Arthropathic psoriasis, unspecified (principal); Z79.899 Other long term (current) drug therapy
CPT/HCPCS: 36415; 80053; 85027; 86140

== ENCOUNTER → 2022-03-09 01:35 | Outpatient (CLI) | payer MEDICARE, SELFPAY ==
--- NOTE | 2022-03-09 08:55 | DI.MAMMO_ITS ---
Exam(s) MAMMO SCREENING EXAM: MAMMO SCREENING CLINICAL HISTORY: screening,z12.39. TECHNIQUE: Bilateral full field digital CC and MLO mammographic images were obtained with 3D tomosyn thesis and utilizing computer aided detection (CAD). COMPARISON: Prior mammograms were reviewed, the most recent being March 2021 and diagnostic follow-up study September 2021. Breast ultrasound examinations of March 2021 and September 2021 were reviewed FINDINGS: Previously described partially calcified nodular density in the left breast appears unchanged. Also unchanged is a partially calcified nodular density in the opposite-right breast. There are no new spiculated masses nor malignant appearing microcalcification groups. There is no significant architectural distortion nor skin thickening-retraction. IMPRESSION: Relatively stable benign-appearing bilateral findings. No radiographic evidence of malignancy. BI-RADS Category 2 - Benign Findings Breast Density - Category B - Scattered areas of fibroglandular density Breast density Category C or D implies that the patient has dense breast tissue. Dense breast tissue can make it harder to find cancer on a mammogram. Dense breast tissue is also associated with an incr eased risk of breast cancer. This information about the result of the mammogram report was provided to the patient to raise their awareness. Use this report when you speak with the patient about their risks for breast cancer, which includes their family history. At that time, you may recommend additional screening tests (Ultrasoun d or MRI) as these tests may add significant information. A negative radiographic report should not delay biopsy if a dominant or clinically suspicious mass is present. Up to ten percent of cancers are not identified on mammography. A negative report may reinforce clinical impression. Adenosis and dense breasts may obscure an underlying neoplasm. False positive reports average 6 to 10%. Patient will receive a letter notifying them of these results.
== END ==
PROVIDERS: PCP Family Medicine; Visit Provider Family Medicine
DX: Z12.31 Encounter for screening mammogram for malignant neoplasm of breast (principal); N60.81 Other benign mammary dysplasias of right breast; N60.82 Other benign mammary dysplasias of left breast
CPT/HCPCS: 77063; 77067

== ENCOUNTER 2022-08-16 03:44 | Outpatient (CLI) | payer MEDICARE, SELFPAY ==
[2022-08-16 12:29] LABS: Abs Immature Grans 0.02 10^3/uL (0.0-0.06); Absolute Basophil Count 0.04 10^3/uL (0.0-0.2); Absolute Eosinophil Count 0.12 10^3/uL (0.0-0.7); Absolute Lymphocyte Count 2.23 10^3/uL (1.2-3.4); Absolute Monocyte Count 0.63 10^3/uL (0.1-0.8); Absolute Neutrophil Count 6.88 10^3/uL (1.2-6.7); Basophils % 0.4; Eosinophils % 1.2; HCT 41.5 % (36.0-46.0); HGB 13.4 g/dL (11.2-15.7); Immature Grans % 0.2; Lymphocytes % 22.5; MCH 28.9 pg (27.0-33.0); MCHC 32.3 % (32.0-36.0); MCV 90 fL (80-95); MPV 10.2 fL (8.0-11.0); Monocytes % 6.4; Neutrophils % 69.3; Platelet Count 216 10^3/uL (130-400); RBC 4.63 10^6/uL (3.93-5.22); RDW 13.2 % (11.7-14.6); RDW-SD 43.3 fL; WBC 9.92 10^3/uL (4.4-10.8)
[2022-08-16 12:52] LABS: ALT 27 U/L (14-59); AST 19 U/L (15-37); Alkaline Phosphatase 86 U/L (46-116); BUN 19 mg/dL (7-18); Bilirubin, Total 0.4 mg/dL (0.2-1.0); CREATININE 0.9 mg/dL (0.55-1.02); Calcium 10.3 mg/dL (8.5-10.1); Chloride 103 mmol/L (98-107); Estimated GFR 67.92 (mL/min/1.73m2); Glucose 100 mg/dL (74-106); Potassium 3.6 mmol/L (3.5-5.1); Sodium 140 mmol/L (136-145); Total Protein 7.4 g/dL (6.4-8.2)
== END 2022-08-16 03:45 | disposition home or self-care (01) ==
LOC: LOS 03:44
PROVIDERS: PCP Family Medicine; Visit Provider Internal Medicine Rheumatology
DX: L40.50 Arthropathic psoriasis, unspecified (principal)
CPT/HCPCS: 36415; 80053; 85025

== ENCOUNTER 2023-01-15 14:44 | Outpatient (CLI) | payer MEDICARE, SELFPAY ==
[2023-01-15 14:35] LABS: ESR 5 mm/hr (0-30)
[2023-01-15 14:36] LABS: Abs Immature Grans 0.02 10^3/uL (0.0-0.06); Absolute Basophil Count 0.04 10^3/uL (0.0-0.2); Absolute Lymphocyte Count 2.28 10^3/uL (1.2-3.4); Absolute Monocyte Count 0.52 10^3/uL (0.1-0.8); Absolute Neutrophil Count 4.51 10^3/uL (1.2-6.7); Basophils % 0.5; Eosinophils % 2.6; Immature Grans % 0.3; Lymphocytes % 30.1; MCH 29.5 pg (27.0-33.0); MCHC 33.3 % (32.0-36.0); MCV 89 fL (80-95); MPV 9.3 fL (8.0-11.0); Monocytes % 6.9; Neutrophils % 59.6; Platelet Count 207 10^3/uL (130-400); RBC 4.74 10^6/uL (3.93-5.22); RDW 12.8 % (11.7-14.6); RDW-SD 42.1 fL; WBC 7.57 10^3/uL (4.4-10.8)
[2023-01-15 14:47] LABS: C-Reactive Protein 0.08 mg/dL (0.0-0.3)
[2023-01-15 14:58] LABS: Calculated LDL 168 mg/dL (<100); Cholesterol 271 mg/dL (<200); HDL Cholesterol 66 mg/dL (40-60); Triglyceride 186 mg/dL (<150)
[2023-01-15 15:00] LABS: ALT 33 U/L (14-59); AST 18 U/L (15-37); Albumin 4.3 g/dL (3.4-5.0); Alkaline Phosphatase 99 U/L (46-116); Anion Gap 5.6 mmol/L (3-11); BUN 18 mg/dL (7-18); Bilirubin, Total 0.3 mg/dL (0.2-1.0); CO2 31.4 mmol/L (21.0-32.0); CREATININE 0.9 mg/dL (0.55-1.02); Calcium 11.1 mg/dL (8.5-10.1); Chloride 102 mmol/L (98-107); Glucose 112 mg/dL (74-106); Potassium 4.1 mmol/L (3.5-5.1); Sodium 139 mmol/L (136-145); TSH (W/Ref FT4) 3.21 uIU/mL (0.36-3.74); Total Protein 7.7 g/dL (6.4-8.2)
[2023-01-16 10:24] LABS: PHOSPHORUS 3.2 mg/dL (2.6-4.7)
== END 2023-01-15 14:45 | disposition home or self-care (01) ==
LOC: LBO 14:44
PROVIDERS: PCP Family Medicine; Visit Provider Optometrist
DX: H35.62 Retinal hemorrhage, left eye (principal)
CPT/HCPCS: 36415; 80053; 80061; 85652; 84100; 84443; 85025; 86140

== ENCOUNTER 2023-01-17 01:39 | Outpatient (CLI) | payer MEDICARE, SELFPAY ==
--- NOTE | 2023-01-17 07:45 | DI.US_ITS ---
Exam(s) US CAROTID EXAM: US CAROTID CLINICAL HISTORY: vision changes,h53.9. TECHNIQUE: Ultrasound carotids performed using grayscale, color-flow, and spectral Doppler imaging. COMPARISON: US US BREAST LT COMPLETE from 09/19/2021 FINDINGS: CAROTID ARTERIES: The right carotid artery is patent. There is some heterogeneous plaque at the leve l the right carotid bulb and proximal right ICA. However, velocities are not significantly indicated indicating less than 50 percent stenosis. On the left side there is also some heterogeneous plaque at the bulb and proximal left ICA, also with out significant elevated velocities indicating less than 50 percent stenosis. VERTEBRAL ARTERIES: Antegrade flow was demonstrated in both vertebral arteries.. Measurements: R Bulb: 84.8cm/s PS / 21.4cm/s ED R CCA: 60.5cm/s PS / 15.6cm/s ED R ECA: 82.6cm/s PS / 9.4cm/s ED R ICA Prox: 86.7cm/s PS / 26.8cm/s ED R ICA Mid: 107.4cm/s PS / 32.2cm/s ED R ICA Distal: 97.2cm/s PS /30.8cm/s ED R Vert: 56.3cm/s PS / 18cm/s ED R SVR: 2 R DVR: 2.1 L Bulb: 84.8cm/s PS / 18.1cm/s ED L CCA: 67.6cm/s PS / 19.4cm/s ED L ECA: 90.8cm/s PS / 13.7cm/s ED L ICA Prox: 94.9cm/s PS / 35.3cm/s ED L ICA Mid: 113.4cm/s PS / 41.2cm/s ED L ICA Distal: 96.5cm/s PS / 27.4cm/s ED L Vert: 47.6cm/s PS / 12.7cm/s ED L SVR: 1.7 L DVR: 2 IMPRESSION: There is plaque evident in both distal carotid bulbs and proximal internal carotid arteries. Peak sy stolic velocities are less than 125 cm/sec, indicating the amount of stenosis is less than 50 percent bilaterally. Antegrade flow is demonstrated in both vertebral arteries. Criteria for Carotid Stenosis: Normal: ICA PSV <125 cm/s no plaque or intimal thickening is visible. <50% stenosis: ICA PSV <125 cm/s and plaque or intimal thickening is visible. 50-69% stenosis: ICA PSV is 125-250 cm/s and plaque is visible. >70% stenosis to near occlusion: ICA PSV >250 cm/s with visible plaque and luminal narrowing. DATA REPOSITORY:
== END 2023-01-17 01:59 ==
PROVIDERS: PCP Family Medicine; Visit Provider Family Medicine
DX: H53.8 Other visual disturbances; I65.23 Occlusion and stenosis of bilateral carotid arteries
CPT/HCPCS: 93880

== ENCOUNTER 2023-02-14 02:18 | Outpatient (CLI) | payer MEDICARE, SELFPAY ==
[2023-02-14 12:20] LABS: Abs Immature Grans 0.01 10^3/uL (0.0-0.06); Absolute Basophil Count 0.03 10^3/uL (0.0-0.2); Absolute Eosinophil Count 0.25 10^3/uL (0.0-0.7); Absolute Lymphocyte Count 2.23 10^3/uL (1.2-3.4); Absolute Monocyte Count 0.47 10^3/uL (0.1-0.8); Absolute Neutrophil Count 2.86 10^3/uL (1.2-6.7); Basophils % 0.5; Eosinophils % 4.3; HGB 13.6 g/dL (11.2-15.7); Immature Grans % 0.2; Lymphocytes % 38.1; MCH 30.2 pg (27.0-33.0); MCHC 33.2 % (32.0-36.0); MCV 91 fL (80-95); MPV 10.2 fL (8.0-11.0); Neutrophils % 48.9; Platelet Count 208 10^3/uL (130-400); RDW-SD 43.2 fL; WBC 5.85 10^3/uL (4.4-10.8)
[2023-02-14 12:39] LABS: ESR 2 mm/hr (0-30)
[2023-02-14 13:07] LABS: ALT 26 U/L (14-59); AST 15 U/L (15-37); Albumin 3.9 g/dL (3.4-5.0); Alkaline Phosphatase 83 U/L (46-116); Anion Gap 5.4 mmol/L (3-11); BUN 20 mg/dL (7-18); Bilirubin, Total 0.3 mg/dL (0.2-1.0); CO2 32.6 mmol/L (21.0-32.0); CREATININE 0.9 mg/dL (0.55-1.02); Calcium 10.8 mg/dL (8.5-10.1); Chloride 105 mmol/L (98-107); Glucose 104 mg/dL (74-106); Potassium 4.4 mmol/L (3.5-5.1); Sodium 143 mmol/L (136-145); Total Protein 7.3 g/dL (6.4-8.2)
[2023-02-15 09:45] LABS: Parathyroid Hormone,Intact 90 pg/mL (19-88)
== END 2023-02-14 02:19 | disposition home or self-care (01) ==
LOC: LOS 02:18
PROVIDERS: PCP Family Medicine; Visit Provider Family Medicine
DX: E83.52 Hypercalcemia (principal); H53.8 Other visual disturbances; K22.70 Barrett's esophagus without dysplasia; M35.3 Polymyalgia rheumatica; I10 Essential (primary) hypertension
CPT/HCPCS: 36415; 80053; 85652; 83970; 84443; 85025

== ENCOUNTER 2023-03-01 02:22 | Outpatient (CLI) | payer MEDICARE, SELFPAY ==
--- NOTE | 2023-03-01 07:25 | DI.MRI_ITS ---
Exam(s) MR BRAIN WO EXAM: MR BRAIN WO CLINICAL HISTORY: vision changes,elevated serum calcium,polymyalgia,h53.9,e83.52,m35.3 TECHNIQUE: Multiplanar multisequence MRI of the brain was performed. COMPARISON: There are no priors for comparison. FINDINGS: VENTRICLES AND EXTRA AXIAL SPACES: Normal in size and morphology for the patient's age. MIDLINE SHIFT: None. CEREBRAL PARENCHYMA: No focus of restricted diffusion to suggest acute infarct. No space-occupying le shaw identified. There are few scattered foci of hyperintense signal in the white matter on the T2 an d FLAIR images most consistent with small vessel ischemic disease. HEMORRHAGE: None. BRAINSTEM/CEREBELLUM: Normal. CALVARIUM: Normal. VISUALIZED PARANASAL SINUSES/MASTOIDS:Clear. [place]: Normal flow void. PITUITARY GLAND: Unremarkable. The sella and visualized portion of the optic chiasm are grossly unrem arkable. OTHER FINDINGS: The visualized orbits and retro-orbital soft tissues are grossly unremarkable. IMPRESSION: 1. Age-appropriate changes within the brain. 2. No acute intracranial mass or infarct. DATA REPOSITORY:
== END 2023-03-01 02:42 ==
LOC: DI 02:22
PROVIDERS: PCP Family Medicine; Visit Provider Family Medicine
DX: E83.52 Hypercalcemia (principal); H53.9 Unspecified visual disturbance; M35.3 Polymyalgia rheumatica
CPT/HCPCS: 70551

== ENCOUNTER 2023-03-29 02:18 | Outpatient (CLI) | payer MEDICARE, SELFPAY ==
[2023-03-29 11:21] LABS: ALT 26 U/L (14-59); AST 15 U/L (15-37); Alkaline Phosphatase 92 U/L (46-116); Anion Gap 6.8 mmol/L (3-11); BUN 18 mg/dL (7-18); Bilirubin, Total 0.5 mg/dL (0.2-1.0); CO2 30.2 mmol/L (21.0-32.0); Calcium 10.5 mg/dL (8.5-10.1); Chloride 105 mmol/L (98-107); Estimated GFR 59.49 (mL/min/1.73m2); Glucose 105 mg/dL (74-106); PHOSPHORUS 3.2 mg/dL (2.6-4.7); Sodium 142 mmol/L (136-145); Total Protein 7.3 g/dL (6.4-8.2)
[2023-03-29 11:45] LABS: Vitamin D 25 Total 28.8 ng/mL (30-100)
[2023-03-29 17:04] LABS: Ionized Calcium 1.31 mmol/L (1.14-1.35)
[2023-03-30 13:30] LABS: Albumin 65.7 % (55.8-66.1); Albumin g/dL 4.6 g/dL (3.6-5.2)
[2023-04-04 14:47] LABS: PTH-Related Peptide 0.6 pmol/L (< or = 4.2)
== END 2023-03-29 02:19 | disposition home or self-care (01) ==
LOC: LOS 02:18
PROVIDERS: PCP Family Medicine; Visit Provider Family Medicine
DX: E83.52 Hypercalcemia (principal)
CPT/HCPCS: 36415; 80053; 82306; 82330; 82397; 84100; 84165

== ENCOUNTER 2023-06-28 03:43 | Outpatient (CLI) | payer MEDICARE, SELFPAY ==
[2023-06-28 09:05] LABS: HCT 40.6 % (36.0-46.0); HGB 13.5 g/dL (11.2-15.7); MCH 29.7 pg (27.0-33.0); MCHC 33.3 % (32.0-36.0); MCV 89 fL (80-95); Platelet Count 186 10^3/uL (130-400); RBC 4.55 10^6/uL (3.93-5.22); RDW 12.5 % (11.7-14.6); RDW-SD 41.3 fL; WBC 6.83 10^3/uL (4.4-10.8)
[2023-06-28 09:08] LABS: ESR 2 mm/hr (0-30)
[2023-06-28 09:59] LABS: ALT 21 U/L (14-59); AST 13 U/L (15-37); Albumin 4.1 g/dL (3.4-5.0); Alkaline Phosphatase 105 U/L (46-116); Anion Gap 9.9 mmol/L (3-11); BUN 21 mg/dL (7-18); Bilirubin, Total 0.5 mg/dL (0.2-1.0); CO2 27.1 mmol/L (21.0-32.0); CREATININE 0.9 mg/dL (0.55-1.02); Calcium 10.9 mg/dL (8.5-10.1); Calculated LDL 82 mg/dL (<100); Chloride 101 mmol/L (98-107); Cholesterol 170 mg/dL (<200); Glucose 106 mg/dL (74-106); HDL Cholesterol 75 mg/dL (40-60); Potassium 3.9 mmol/L (3.5-5.1); Sodium 138 mmol/L (136-145); Total Protein 7.8 g/dL (6.4-8.2); Triglyceride 66 mg/dL (<150)
[2023-06-28 12:21] LABS: Hemoglobin A1C 5.2 % (<5.7)
[2023-06-28 18:52] LABS: Rheumatoid Factor <8.6 IU/mL (<12.0)
[2023-06-29 15:16] LABS: ANA Interpretation Negative (Negative)
[2023-06-30 10:52] LABS: Myeloperoxidase Ab IgG <0.2 U; Proteinase 3 Ab (PR3) <0.2 U
[2023-06-30 17:19] LABS: Phospholipid Ab, IgG <9.4 GPL; Phospholipid Ab, IgM <9.4 MPL
== END 2023-06-28 03:44 | disposition home or self-care (01) ==
LOC: LOS 03:43
PROVIDERS: PCP Family Medicine; Visit Provider Family Medicine
DX: I10 Essential (primary) hypertension; E11.9 Type 2 diabetes mellitus without complications
CPT/HCPCS: 36415; 80053; 80061; 85027; 85652; 86147; 83036; 83516; 86038; 86140; 86431

== ENCOUNTER 2023-07-11 14:37 | Outpatient (CLI) | payer MEDICARE, SELFPAY ==
[2023-07-11 15:07] LABS: ALT 22 U/L (14-59); AST 14 U/L (15-37); Albumin 3.9 g/dL (3.4-5.0); Alkaline Phosphatase 95 U/L (46-116); Anion Gap 6.6 mmol/L (3-11); BUN 17 mg/dL (7-18); Bilirubin, Total 0.4 mg/dL (0.2-1.0); CO2 29.4 mmol/L (21.0-32.0); CREATININE 0.9 mg/dL (0.55-1.02); Calcium 10.8 mg/dL (8.5-10.1); Chloride 103 mmol/L (98-107); Glucose 118 mg/dL (74-106); Potassium 3.8 mmol/L (3.5-5.1); Sodium 139 mmol/L (136-145); Total Protein 7.4 g/dL (6.4-8.2)
[2023-07-11 23:17] LABS: Parathyroid Hormone,Intact 113 pg/mL (19-88)
[2023-07-12 13:27] LABS: Albumin g/dL 4.4 g/dL (3.6-5.2); Total Protein 6.9 g/dL (6.3-8.2)
[2023-07-16 12:49] LABS: Factor V Leiden(R506Q) Mut Negative (Negative)
== END 2023-07-11 14:38 | disposition home or self-care (01) ==
LOC: LBO 14:37
PROVIDERS: PCP Family Medicine; Visit Provider Family Medicine
DX: E83.52 Hypercalcemia; I10 Essential (primary) hypertension
CPT/HCPCS: 36415; 80053; 81241; 83970; 84165

== ENCOUNTER 2023-07-13 16:01 | Outpatient (REF) | payer MEDICARE, SELFPAY ==
[2023-07-14 13:37] LABS: Calcium Urine 11.9 mg/dL (See Note); Calcium Urine 24 hr 167 mg/24hr (100-300); Timed Urine Volume 1400 mL
== END 2023-07-13 16:02 | disposition home or self-care (01) ==
LOC: LBN 16:01
PROVIDERS: PCP Family Medicine; Visit Provider Family Medicine
DX: E83.52 Hypercalcemia (principal)
CPT/HCPCS: 81050; 82340

== ENCOUNTER 2023-08-03 14:03 | Outpatient (CLI) | payer MEDICARE, SELFPAY ==
[2023-08-03 14:27] LABS: ALT 33 U/L (14-59); AST 20 U/L (15-37); Alkaline Phosphatase 100 U/L (46-116); Anion Gap 7.3 mmol/L (3-11); BUN 19 mg/dL (7-18); Bilirubin, Total 0.4 mg/dL (0.2-1.0); CO2 28.7 mmol/L (21.0-32.0); CREATININE 0.8 mg/dL (0.55-1.02); Calcium 10.5 mg/dL (8.5-10.1); Chloride 104 mmol/L (98-107); Estimated GFR 77.75 (mL/min/1.73m2); Glucose 100 mg/dL (74-106); Potassium 3.9 mmol/L (3.5-5.1); Sodium 140 mmol/L (136-145); Total Protein 7.2 g/dL (6.4-8.2)
[2023-08-03 21:26] LABS: Ionized Calcium 1.34 mmol/L (1.14-1.35)
[2023-08-03 23:30] LABS: Parathyroid Hormone,Intact 102 pg/mL (19-88)
== END 2023-08-03 14:04 | disposition home or self-care (01) ==
LOC: LBO 14:04
PROVIDERS: PCP Family Medicine; Visit Provider Family Medicine
DX: E83.52 Hypercalcemia; R79.89 Other specified abnormal findings of blood chemistry; I10 Essential (primary) hypertension
CPT/HCPCS: 36415; 80053; 82330; 83970

== ENCOUNTER → 2023-08-08 04:01 | Outpatient (CLI) | payer MEDICARE, SELFPAY ==
--- NOTE | 2023-08-08 07:30 | DI.NM_ITS ---
Exam(s) NM PARATHYROID SCAN CLINICAL HISTORY: elevated calcium and PTH,E83.52,R79.89. COMPARISON: No exams were available for comparison EXAMINATION: Injected Dose: 20 mCi Tc-99m sestamibi Initial Images: 15 minutes Delayed images: 2 hours FINDINGS: Initial imaging demonstrates symmetric thyroid uptake. Delayed imaging demonstrates no evidence of pa rathyroid adenoma. IMPRESSION: 1. No evidence of parathyroid adenoma.
== END ==
PROVIDERS: PCP Family Medicine; Visit Provider Family Medicine
DX: E83.52 Hypercalcemia (principal); R79.89 Other specified abnormal findings of blood chemistry
CPT/HCPCS: 78070

== ENCOUNTER 2023-08-28 03:01 | Outpatient (CLI) | payer MEDICARE, SELFPAY ==
[2023-08-28 12:10] LABS: Abs Immature Grans 0.02 10^3/uL (0.0-0.06); Absolute Basophil Count 0.04 10^3/uL (0.0-0.2); Absolute Eosinophil Count 0.14 10^3/uL (0.0-0.7); Absolute Lymphocyte Count 2.01 10^3/uL (1.2-3.4); Absolute Monocyte Count 0.43 10^3/uL (0.1-0.8); Absolute Neutrophil Count 2.89 10^3/uL (1.2-6.7); Basophils % 0.7; Eosinophils % 2.5; HCT 38.5 % (36.0-46.0); HGB 12.6 g/dL (11.2-15.7); Immature Grans % 0.4; Lymphocytes % 36.3; MCH 29.4 pg (27.0-33.0); MCHC 32.7 % (32.0-36.0); MCV 90 fL (80-95); MPV 10.6 fL (8.0-11.0); Monocytes % 7.8; Neutrophils % 52.3; Platelet Count 194 10^3/uL (130-400); RBC 4.29 10^6/uL (3.93-5.22); RDW-SD 42.5 fL; WBC 5.53 10^3/uL (4.4-10.8)
[2023-08-28 12:33] LABS: ALT 20 U/L (14-59); AST 12 U/L (15-37); Albumin 3.9 g/dL (3.4-5.0); Alkaline Phosphatase 101 U/L (46-116); BUN 16 mg/dL (7-18); Bilirubin, Total 0.4 mg/dL (0.2-1.0); CREATININE 0.8 mg/dL (0.55-1.02); Calcium 10.5 mg/dL (8.5-10.1); Chloride 104 mmol/L (98-107); Estimated GFR 77.75 (mL/min/1.73m2); Glucose 100 mg/dL (74-106); Potassium 3.8 mmol/L (3.5-5.1); Sodium 139 mmol/L (136-145); Total Protein 7.2 g/dL (6.4-8.2)
[2023-08-28 14:33] LABS: C-Reactive Protein 0.06 mg/dL (0.0-0.3)
== END 2023-08-28 03:02 | disposition home or self-care (01) ==
PROVIDERS: PCP Family Medicine; Visit Provider Internal Medicine Rheumatology
DX: L40.50 Arthropathic psoriasis, unspecified (principal)
CPT/HCPCS: 36415; 80053; 85025; 86140

== ENCOUNTER 2023-09-05 13:16 | Outpatient (REF) | payer MEDICARE, SELFPAY | END 2023-09-05 13:17 | disposition home or self-care (01) | LOC: LBN 13:16 | PROVIDERS: PCP Family Medicine; Visit Provider Nurse Practitioner Family | DX: R10.32 Left lower quadrant pain (principal); B96.20 Unspecified Escherichia coli [E. coli] as the cause of diseases classified elsewhere | CPT/HCPCS: 87077; 87086; 87186 ==

== ENCOUNTER → 2023-09-10 13:13 | Outpatient (BNVA) | payer MEDICARE, SELFPAY | PROVIDERS: PCP Family Medicine; Referring Provider Family Medicine; Visit Provider Urology | DX: N20.0 Calculus of kidney (principal); N20.1 Calculus of ureter; R10.32 Left lower quadrant pain; N39.0 Urinary tract infection, site not specified | CPT/HCPCS: 99215 ==

== ENCOUNTER 2023-09-11 10:47 | Day surgery (SDC) | payer MEDICARE, SELFPAY ==
[2023-09-11] VITALS (8 sets, daily range): BP systolic 109–138; BP diastolic 55–96; PULSE 57–69; RESP 10–18; TEMP 36.4–37; O2SAT 95–100; BMI 24.5
[2023-09-11] MEDS: Lactated Ringers 1,000 ML 80 ML IV (11:45)
--- NOTE | 2023-09-11 11:51 | W.PM.HP.N ---
Date of service: 09/11/23 Time of Service: 11:52 Assessment and Plan Assessment and plan (1) Left ureteral stone: Status: Acute Assessment and plan: We will plan left ureteroscopy and holmium laser lithotripsy. I will plan to place a ureteral stent given her history of chills and her immunocompromised status. History of Present Illness History of Present Illness Chief Complaint: Left ureteral stone Narrative: This is a 72-year-old woman who has a history of hypercalcemia and hyperparathyroidism. She is due to see endocrinology in November. She describes left lower abdominal pain and chills about 5 weeks ago. This occurred shortly after she received a COVID vaccination, and she thought that the symptoms were a side effect of her shot. Since then, she has had intermittent pain. Last week, the pain increased and she developed shaking chills and nausea. She was unable to tolerate Tylenol or NSAIDs as she vomited them back up. She saw the providers at [facility] in the next day and a stat CT scan was ordered. The clinical suspicion at that time was diverticulitis. Our hospital was unable to perform the CT that day, so the scan was done in [place]. A left distal ureteral stone was identified. She has had persistent left abdominal and flank pain since then. She had a urine sample taken and E. coli was identified. She is now on Cipro. She has no prior history of urologic surgery or stone disease. As mentioned previously, her stone risk includes hypercalcemia and hyperparathyroidism. Review of Systems Narrative: No fevers or chills Retinal vein occlusion. No dysphasia Hyperparathyroidism.. Hypothyroidism. No diabetes No shortness of breath, cough or hemoptysis No chest pain or palpitations GERD, PUD, esophagitis. No hepatitis or jaundice Frequent migraines. No seizures or peripheral neuropathy No bleeding disorders or anemia Chronic back pain. Psoriatic arthritis. No gout PFSH All Active Problems Left ureteral stone (Acute) Nephrolithiasis (Chronic) Left lower quadrant abdominal pain (Acute) Elevated parathyroid hormone (Acute) Hyperparathyroidism (Acute) Central retinal vein occlusion (Acute) Vision changes (Acute) Serum calcium elevated (Acute) Diarrhea (Acute) Skin lesion (Acute) Ankle sprain (Acute) Heart murmur (Acute) Polymyalgia rheumatica (Acute 09/06/07) Vitamin B12 deficiency anemia due to selective vitamin B12 malabsorption with proteinuria (Acute 09/13/13) Tubular adenoma (Acute ~03/07/19) 2012-TUBULAR ADENOMAS 03/07/19; X 2 Migraine (Acute ~1977) Rectocele (Acute) Vitreous detachment (Chronic) OU-STABLE Tinnitus, bilateral (Chronic 12/28/15) Psoriatic arthritis (Chronic) Osteopenia (Chronic) Lumbago due to displacement of intervertebral disc (Chronic) scoliosis and marked DJD DDD L4-5 S1 Hypothyroidism (Chronic 09/13/13) Hypercholesterolemia (Chronic 09/06/00) Gastroesophageal reflux disease with esophagitis (Chronic) EGD-Dr.K Dorsey 09/2013-Sanchez's Hiatal hernia Gastric ulcer (Chronic 05/17/15) Floater, vitreous (Chronic) OD-NEW Essential hypertension (Chronic 07/09/13) 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 Anemia 09/06/02 TIBC 328/Hct 35, Vit B12 730 + H.Pylori resolved. repeat EGD/colonoscopy/hematology consult-resolved. found to be near hypothyroid and B12 deficient 09/19 Uterine prolapse 09/06/03 s/p hysterectomy Polymyalgia rheumatica 09/06/07 Ankle joint pain 01/30/13 Watery diarrhea Calculus of gallbladder and bile duct w/cholecystitis w/o obstruction 12/24/15 Generalized abdominal pain 03/23/16 Boil of buttock 06/08/16 Abdominal pain Herpes zoster (02/19/14) Vitamin B 12 deficiency (12/23/15) Migraine (05/11/14) Hypertension Cataract Barretts esophagus GERD (gastroesophageal reflux disease) Facial basal cell cancer Psoriasis Osteopenia Hypothyroidism Hypercholesteremia Colon polyp Anemia Vitreous floater Surgical History History of endoscopy History of knee surgery History of laparoscopic cholecystectomy Status post breast biopsy Status post cholecystectomy S/P breast biopsy microcalcifications H/O endoscopy H/O knee surgery dickerson's cyst Hx laparoscopic cholecystectomy 03/08/16 S/P cholecystectomy 03/08/16 Endoscopy Colonoscopy - IV Sedation Cholecystectomy (03/15/16) Biopsy of breast microcalcifications BAKERS CYST (~1979) Family History Mother , 88 Dementia Stroke Father , 80 Heart disease Lung cancer Brother , ACCIDENTAL at age 36. No problems noted. Brother Diabetes Heart disease Brother Esophageal cancer Maternal Grandfather , 80 Colon cancer Paternal Grandfather , 75 Dementia Maternal Grandmother , 80 Stroke Paternal Grandmother Stroke Daughter No problems noted. Daughter No problems noted. Social History Smoking/Tobacco Use Status: Never Second Hand Exposure: No Smoking risk assessment performed?: Yes Alcohol Intake: never Drug use: Rarely Substance use type: marijuana Details: medical marijuana, no use x a couple of months Caregiver/Support person: No Household members: spouse and children Housing: house Communication Needs: Corrective Lenses Do you need help understanding health information?: Never Pets and animals: No Sexually active: No Do you think of yourself as: straight/heterosexual Current gender identity: female What is your relationship status?: How often do you talk on the phone with friends or family?: twice per week How often do you get together with friends or relatives?: decline to answer How often do you attend rastafari or baptism services?: decline to answer Do you belong to any clubs or organized social groups?: no Panel score (0-1 are the most socially isolated patients): 1 What type of physical activity do you participate in: walking and yoga Duration: 45-60 minutes/day Frequency: daily Judy/Jainism: No preference Special judy needs: No Seatbelt use: always Drive intox or ride w/intox speedboat driver: No Do you feel safe at home: Yes Do you feel safe in your relationship?: Yes Additional Social history: unable to assess privately, 09/11/23 Meds Allergies and Home Medications Allergies Allergy/AdvReac Type Severity Reaction Status Date / Time Sulfa (Sulfonamide Allergy Mild UTI Verified 09/11/23 11:15 Antibiotics) Home Medications Medication Instructions Recorded Confirmed Type Lactobacillus acidophilus-pectin 1 cap PO DAILY 01/16/13 09/11/23 History capsule (Acidophilus-Pectin capsule) ascorbic acid (vitamin C) 1,000 mg 1 tab PO DAILY 01/16/13 09/11/23 History tablet cetirizine 10 mg tablet (Zyrtec) 1 tab PO DAILY 01/16/13 09/11/23 History etanercept 50 mg/mL (1 mL) 50 mg SQ QWEEK 01/16/13 09/11/23 History subcutaneous pen injector (Enbrel SureClick) multivitamin 1 cap PO DAILY 01/16/13 09/10/23 History omega-3 fatty acids-fish oil 300 1 cap PO DAILY 01/16/13 09/11/23 History mg-1,000 mg capsule Dgl 750 mg PO DAILY 12/24/17 09/11/23 History calcium carbonate 600 mg-vitamin 1 ea PO DAILY 12/24/17 09/11/23 History D3 5 mcg (200 unit) tablet turmeric 450 mg-turmeric root 1 ea PO DAILY 12/24/17 09/11/23 History extract 50 mg capsule acetaminophen 650 mg 650 mg PO DAILY PRN 06/20/18 09/11/23 History tablet,extended release (Tylenol Arthritis) triamcinolone acetonide 0.1 % 1 applic topical DAILY PRN rash 08/15/18 09/11/23 Rx topical cream #80 grams cholestyramine (with sugar) 4 gram 4 gm PO DAILY 06/12/19 09/11/23 History powder for susp in a packet alqzhcn-hlxuqkrnss-NJV-caffeine 30 1 cap PO TID PRN PRN headache #60 09/13/21 09/11/23 Rx mg-50 mg-325 mg-40 mg capsule tab-caps famotidine 40 mg tablet 40 mg PO QHS #90 tabs 10/10/22 09/11/23 Rx folic acid 1 mg tablet 1 mg PO DAILY #90 tabs 10/10/22 09/11/23 Rx hydrochlorothiazide 25 mg tablet 25 mg PO DAILY #90 tab-caps 10/10/22 09/10/23 Rx levothyroxine 50 mcg tablet 50 mcg PO DAILY #90 tab-caps 10/10/22 09/11/23 Rx omeprazole 40 mg capsule,delayed 40 mg PO DAILY #90 caps 10/10/22 09/11/23 Rx release cyanocobalamin (vitamin B-12) 1,000 mcg IM month #6 vials 01/15/23 09/11/23 Rx 1,000 mcg/mL injection solution needle (disp) 21 G 21 gauge x 1 ##12 01/15/23 09/10/23 Rx (BD Regular Bevel Wittman) syringe 20ML BD See Rx Instructions IM .Q4 weeks 01/15/23 09/10/23 Rx #12 SYRGS aspirin 81 mg chewable tablet 81 mg PO DAILY 02/08/23 09/11/23 History safety needles 25 gauge x 1 1/2 #3 ea 02/08/23 09/10/23 Rx (BD Eclipse) varicella-zoster glycoE [id number] 0.5 ml IM ONCE #1 ea 02/08/23 09/11/23 Rx adj(PF) 50 mcg/0.5 mL IM susp, kit (Shingrix (PF)) estradiol 10 mcg vaginal tablet 10 mcg vaginal 2X Week #25 tab-caps 03/12/23 09/11/23 Rx (Vagifem) ergocalciferol (vitamin D2) 1,250 50,000 unit PO QWEEK #13 caps 03/29/23 09/11/23 Rx mcg (50,000 unit) capsule atorvastatin 10 mg tablet 10 mg PO DAILY #90 tabs 05/01/23 09/11/23 Rx sumatriptan succinate 100 mg tablet 100 mg PO ONCE #9 tab-caps 06/21/23 09/11/23 Rx ciprofloxacin HCl 500 mg tablet 500 mg PO Q12H 10 days #20 tabs 09/07/23 09/11/23 Rx (Cipro) tamsulosin 0.4 mg capsule (Flomax) 0.4 mg PO DAILY #30 caps 09/07/23 09/11/23 Rx Exam Const General: cooperative Neck Neck: supple Resp Effort & Inspection: normal respiratory effort Auscultation: clear to auscultation bilaterally Cardio Rate: regular rate Rhythm: regular rhythm GI Palpation: soft and no masses Neuro General: patient alert, patient awake and patient oriented x3 Results Last Vital Signs Temp 37.0 C 09/11/23 11:29 Pulse 69 09/11/23 11:29 Resp 18 09/11/23 11:29 BP 122/63 09/11/23 11:29 Pulse Ox 98 09/11/23 11:29 Time Spent Time spent with Patient: <40 minutes Time was spent: other
--- NOTE | 2023-09-11 12:30 | W.ANESPRE ---
General Info Date of Service Date Performed: 09/11/23 Height: 5 ft 4 in Weight: 64.9 kg Body Mass Index (BMI): 24.5 Surgical Procedure: Operation Date: 09/11/23 12:40 Proposed Procedure Side Surgeon p Cystoscopy/Laser/left Retrograde/left Ureteroscopy, possible stent Left Gideon Traore MD Meds Allergies and Home Medications Allergies Allergy/AdvReac Type Severity Reaction Status Date / Time Sulfa (Sulfonamide Allergy Mild UTI Verified 09/11/23 11:15 Antibiotics) Home Medication Medication Instructions Recorded Lactobacillus acidophilus-pectin 1 cap PO DAILY 01/16/13 capsule (Acidophilus-Pectin capsule) ascorbic acid (vitamin C) 1,000 mg 1 tab PO DAILY 01/16/13 tablet cetirizine 10 mg tablet (Zyrtec) 1 tab PO DAILY 01/16/13 etanercept 50 mg/mL (1 mL) 50 mg SQ QWEEK 01/16/13 subcutaneous pen injector (Enbrel SureClick) multivitamin 1 cap PO DAILY 01/16/13 omega-3 fatty acids-fish oil 300 1 cap PO DAILY 01/16/13 mg-1,000 mg capsule Dgl 750 mg PO DAILY 12/24/17 calcium carbonate 600 mg-vitamin 1 ea PO DAILY 12/24/17 D3 5 mcg (200 unit) tablet turmeric 450 mg-turmeric root 1 ea PO DAILY 12/24/17 extract 50 mg capsule acetaminophen 650 mg 650 mg PO DAILY PRN 06/20/18 tablet,extended release (Tylenol Arthritis) triamcinolone acetonide 0.1 % 1 applic topical DAILY PRN rash 08/15/18 topical cream #80 grams cholestyramine (with sugar) 4 gram 4 gm PO DAILY 06/12/19 powder for susp in a packet xykuxbv-yuuhkogksl-BCE-caffeine 30 1 cap PO TID PRN PRN headache #60 09/13/21 mg-50 mg-325 mg-40 mg capsule tab-caps famotidine 40 mg tablet 40 mg PO QHS #90 tabs 10/10/22 folic acid 1 mg tablet 1 mg PO DAILY #90 tabs 10/10/22 hydrochlorothiazide 25 mg tablet 25 mg PO DAILY #90 tab-caps 10/10/22 levothyroxine 50 mcg tablet 50 mcg PO DAILY #90 tab-caps 10/10/22 omeprazole 40 mg capsule,delayed 40 mg PO DAILY #90 caps 10/10/22 release cyanocobalamin (vitamin B-12) 1,000 mcg IM month #6 vials 01/15/23 1,000 mcg/mL injection solution needle (disp) 21 G 21 gauge x 1 ##12 01/15/23 (BD Regular Bevel [place]) syringe 20ML BD See Rx Instructions IM .Q4 weeks 01/15/23 #12 SYRGS aspirin 81 mg chewable tablet 81 mg PO DAILY 02/08/23 safety needles 25 gauge x 1 1/2 #3 ea 02/08/23 (BD Eclipse) varicella-zoster glycoE [id number] 0.5 ml IM ONCE #1 ea 02/08/23 adj(PF) 50 mcg/0.5 mL IM susp, kit (Shingrix (PF)) estradiol 10 mcg vaginal tablet 10 mcg vaginal 2X Week #25 tab-caps 03/12/23 (Vagifem) ergocalciferol (vitamin D2) 1,250 50,000 unit PO QWEEK #13 caps 03/29/23 mcg (50,000 unit) capsule atorvastatin 10 mg tablet 10 mg PO DAILY #90 tabs 05/01/23 sumatriptan succinate 100 mg tablet 100 mg PO ONCE #9 tab-caps 06/21/23 ciprofloxacin HCl 500 mg tablet 500 mg PO Q12H 10 days #20 tabs 09/07/23 (Cipro) tamsulosin 0.4 mg capsule (Flomax) 0.4 mg PO DAILY #30 caps 09/07/23 Current Visit Medications: Current Medications Generic Name Dose Route Start Last Admin Trade Name Dayana PRN Reason Stop Dose Admin Ringer's Solution 1,000 mls @ 80 mls/hr 09/11/23 06:00 09/11/23 11:45 IV 09/11/23 23:59 80 mls/hr INFUSION MOOKIE Administration Cefazolin Sodium/Dextrose 2 gm in 50 mls @ 100 mls/hr 09/11/23 06:00 Ancef Duplex IVPB 09/11/23 23:59 PREOP MOOKIE IV Miscellaneous Supplies 1 each 09/11/23 06:00 Iv Access IV 09/11/23 23:59 DIRECTED MOOKIE Sodium Chloride 0 ml 09/11/23 06:00 Normal Saline Flush 10 Ml Syr IV 09/11/23 23:59 PRN PRN Sodium Chloride 0 ml 09/11/23 06:00 Normal Saline 10 Ml Vial IJ 09/11/23 23:59 DIRECTED PRN Sterile Water 0 ml 09/11/23 06:00 Water,Injection,Sterile 10 Ml Vial IJ 09/11/23 23:59 DIRECTED PRN PFSH Active Problems Active Problems: Problem Status Onset Code Left ureteral stone N20.1 Nephrolithiasis N20.0 Left lower quadrant abdominal pain R10.32 Elevated parathyroid hormone R79.89 Hyperparathyroidism E21.3 Central retinal vein occlusion H34.8192 Vision changes H53.9 Serum calcium elevated E83.52 Diarrhea R19.7 Skin lesion L98.9 Ankle sprain S93.409A Heart murmur R01.1 Polymyalgia rheumatica 09/06/07 M35.3 Vitamin B12 deficiency anemia due to selective vitamin B12 malabsorption with proteinuria 09/13/13 D51.1 Tubular adenoma ~03/07/19 D36.9 Migraine ~1977 G43.909 Rectocele N81.6 Vitreous detachment H43.819 Tinnitus, bilateral 12/28/15 H93.13 Psoriatic arthritis L40.50 Osteopenia M85.80 Lumbago due to displacement of intervertebral disc M51.26 Hypothyroidism 09/13/13 E03.9 Hypercholesterolemia 09/06/00 E78.00 Gastroesophageal reflux disease with esophagitis K21.0 Gastric ulcer 05/17/15 K25.9 Floater, vitreous H43.399 Essential hypertension 07/09/13 I10 Sanchez's esophagus 09/24/12 K22.70 Vaginal atrophy N95.2 Medical History Medical History Visit for suture removal Tongue anomaly Anemia (09/06/02) Ankle joint pain (01/30/13) Boil of buttock (06/08/16) Calculus of gallbladder without cholecystitis without obstruction (12/24/15) Generalized abdominal pain (03/23/16) Herpes zoster (02/19/14) History of rheumatic fever Uterine prolapse (09/06/03) Watery diarrhea (02/25/15) Cyst of finger History of rheumatic fever Heart murmur echo--no valvular abnormality, systolic murmur age 11. Anemia 09/06/02 TIBC 328/Hct 35, Vit B12 730 + H.Pylori resolved. repeat EGD/colonoscopy/hematology consult-resolved. found to be near hypothyroid and B12 deficient 09/19 Uterine prolapse 09/06/03 s/p hysterectomy Polymyalgia rheumatica 09/06/07 Ankle joint pain 01/30/13 Watery diarrhea Calculus of gallbladder and bile duct w/cholecystitis w/o obstruction 12/24/15 Generalized abdominal pain 03/23/16 Boil of buttock 06/08/16 Abdominal pain Herpes zoster (02/19/14) Vitamin B 12 deficiency (12/23/15) Migraine (05/11/14) Hypertension Cataract Barretts esophagus GERD (gastroesophageal reflux disease) Facial basal cell cancer Psoriasis Osteopenia Hypothyroidism Hypercholesteremia Colon polyp Anemia Vitreous floater Medical History Comments:: Pt. states she vomits after having versed Surgical History Surgical History History of endoscopy History of knee surgery History of laparoscopic cholecystectomy Status post breast biopsy Status post cholecystectomy S/P breast biopsy microcalcifications H/O endoscopy H/O knee surgery dickerson's cyst Hx laparoscopic cholecystectomy 03/08/16 S/P cholecystectomy 03/08/16 Endoscopy Colonoscopy - IV Sedation Cholecystectomy (03/15/16) Biopsy of breast microcalcifications BAKERS CYST (~1979) Tobacco Smoking/Tobacco Use Status: Never Passive smoking exposure: No Second hand exposure: No Alcohol Alcohol Intake: never Substance Use Substance use: Rarely Substance use type: marijuana Details: medical marijuana, no use x a couple of months Vital Signs and Lab Results Vital Signs Most Recent Vital Signs in EMR: Most Recent Vital Signs Temp Pulse Resp BP Pulse Ox 37.0 C 69 18 122/63 98 09/11/23 11:29 09/11/23 11:29 09/11/23 11:29 09/11/23 11:29 09/11/23 11:29 Lab Results Blood Type / Crossmatch: No Data to Display Complete Blood Count: White Blood Count 5.53 10^3/uL (4.4-10.8) 08/28/23 09:41 Red Blood Count 4.29 10^6/uL (3.93-5.22) 08/28/23 09:41 Hemoglobin 12.6 g/dL (11.2-15.7) 08/28/23 09:41 Hematocrit 38.5 % (36.0-46.0) 08/28/23 09:41 Platelet Count 194 10^3/uL (130-400) 08/28/23 09:41 Complete Metabolic Panel: Sodium 139 mmol/L (136-145) 08/28/23 09:41 Potassium 3.8 mmol/L (3.5-5.1) 08/28/23 09:41 Chloride 104 mmol/L (98-107) 08/28/23 09:41 Carbon Dioxide 29.0 mmol/L (21.0-32.0) 08/28/23 09:41 BUN 16 mg/dL (7-18) 08/28/23 09:41 Creatinine 0.8 mg/dL (0.55-1.02) 08/28/23 09:41 Est GFR (CKD-EPI 2020) 77.75 (mL/min/1.73m2) 08/28/23 09:41 Calcium 10.5 mg/dL (8.5-10.1) H 08/28/23 09:41 Albumin 3.9 g/dL (3.4-5.0) 08/28/23 09:41 Glucose 100 mg/dL (74-106) 08/28/23 09:41 C-Reactive Protein 0.06 mg/dL (0.0-0.3) 08/28/23 09:41 Liver Function Panel: Alanine Aminotransferase (ALT/SGPT) 20 U/L (14-59) 08/28/23 09:41 Aspartate Amino Transf (AST/SGOT) 12 U/L (15-37) L 08/28/23 09:41 Coagulation Panel: No Data to Display Cardiac Panel: No Data to Display Arterial Blood Gas: No Data to Display Venous Blood Gas: No Data to Display Pancreas Panel: No Data to Display Thyroid Panel: No Data to Display Infectious Disease: No Data to Display Blood Cultures: No Data to Display Toxicology Panel: No Data to Display Imaging and Studies Imaging and Studies Study information below may be from another EMR and interpreted by another provider. Please see original notes in EMR for more complete details. Carotid Artery Summary:: 01/28: stenosis < 50% bilaterally. Anesthesia Assessment and Plan Anesthesia History Personal History: PONV Family History: No Family History of Anesthesia Complications Exercise Tolerance Exercise Tolerance: Metabolic Equivalents>4 Cardiac & Pulmonary Exam Cardiac Exam: Normal S1/S2 Heart Sounds Pulmonary Exam: Clear Bilateral Breath Sounds Implantable Cardiac Device Does patient have a Pacemaker or an ICD?: No Airway Exam Known Difficult Airway: No Mallampati Class: 2 Mouth Opening: Normal (> 3cm) Thyromental Distance: Greater than 3 cm Neck Range of Motion: Full ROM Neck Circumference: Normal Teeth Condition: Normal Dentition Airway Comments: cap is off front right tooth. ASA Classification ASA Score: ASA 2 Emergency Case?: No NPO Status NPO Status: NPO Clears >2 hours, Solids >8 hours Anesthesia Plan Resuscitation Status: Full Code Anesthesia Technique: General Anesthesia Airway Planned: LMA Monitors Used: Standard Monitors Preoperative Comments:: 72 yo female for cysto. Sig PMHx: HTN (on no meds anymore after weight loss), Sanchez's/GERD (well controlled with omeprazole and famotidine, sleeps with two pillows), hypothyroid, never smoker, Previous Anes: - lap mylene, mac 3 grade 1, no issues.
[2023-09-11] MEDS: ceFAZolin 2 GM/50 ML BAG IVPB (14:08)
[2023-09-11] MEDS: Lidocaine 2% Jelly 6 ML SYR (14:10)
[2023-09-11] MEDS: Omnipaque 300 MG/ML 50 ML BTL (14:10)
--- NOTE | 2023-09-11 14:30 | W.PM.DSUDISC ---
Date of service: 09/11/23 Time of Service: 14:30 Discharge Plan Disposition Condition: Stable Discharge Details Reason For Visit: ureteroscopy Attending Provider: Gideon Traore Primary Care Provider: Jessica Ken Home Meds and New Rx's Prescriptions: Continued acetaminophen [Tylenol Arthritis] 650 mg tablet extended release 650 mg PO DAILY PRN famotidine 40 mg tablet 40 mg PO QHS Qty: 90 4RF folic acid 1 mg tablet 1 mg PO DAILY Qty: 90 12RF levothyroxine 50 mcg tablet 50 mcg PO DAILY Qty: 90 12RF omeprazole 40 mg capsule,delayed release(DR/EC) 40 mg PO DAILY Qty: 90 4RF atorvastatin 10 mg tablet 10 mg PO DAILY Qty: 90 4RF sumatriptan succinate 100 mg tablet 100 mg PO ONCE Qty: 9 12RF Rx Instructions: At onset of migraine. Not to exceed 1 per 24 hours cholestyramine (with sugar) 4 gram powder in packet 4 gm PO DAILY Patient Comments: not used in several weeks aspirin 81 mg tablet,chewable 81 mg PO DAILY Shingrix (PF) 50 mcg/0.5 mL suspension for reconstitution 0.5 ml IM ONCE Qty: 1 1RF Rx Instructions: as a single dose. Repeat in 2 months (DME) BD Eclipse 25 gauge x 1 1/2 needle See Rx Instructions .Route Qty: 3 12RF Rx Instructions: As directed B12 deficiency Q month Enbrel SureClick 50 MG/1 ML pen injector 50 mg SQ QWEEK ascorbic acid (vitamin C) 1,000 MG tablet 1 tab PO DAILY cetirizine [Zyrtec] 10 MG tablet 1 tab PO DAILY Acidophilus-Pectin 1 EACH capsule 1 cap PO DAILY multivitamin 1 EACH capsule 1 cap PO DAILY omega-3 fatty acids-fish oil 1 EACH capsule 1 cap PO DAILY calcium carbonate-vitamin D3 1 EACH tablet 1 ea PO DAILY Patient Comments: has not taken in 6 months turmeric-turmeric root extract 1 EACH capsule 1 ea PO DAILY DGL 750 mg PO DAILY Patient Comments: licorice root tablet triamcinolone acetonide 0.1 % cream 1 applic Topical DAILY PRN (Reason: rash) Qty: 80 2RF Rx Instructions: 0.1% CREAM 80 GM nkrqqyf-pzdtqhjvua-FMW-caff [id number] mg capsule 1 cap PO TID PRN PRN (Reason: headache) Qty: 60 0RF (DME) BD Regular Bevel [place] 21 gauge x 1 needle 1 ea IM as directed Qty: 12 0RF Rx Instructions: dispense long needle for IM injection syringe 20ML BD See Rx Instructions IM .Q4 weeks Qty: 12 4RF Dose Instruction: 1 syringe IM .Q4 weeks; Rx Instructions: 1 syringe IM .Q4 weeks; cyanocobalamin (vitamin B-12) 1,000 mcg/mL solution 1,000 mcg IM month Qty: 6 12RF estradiol [Vagifem] 10 mcg tablet 10 mcg VG 2X Week Qty: 25 12RF ergocalciferol (vitamin D2) 1,250 mcg (50,000 unit) capsule 50,000 unit PO QWEEK Qty: 13 4RF ciprofloxacin HCl [Cipro] 500 mg tablet 500 mg PO Q12H 10 Days Qty: 20 0RF Discontinued tamsulosin [Flomax] 0.4 mg capsule 0.4 mg PO DAILY Qty: 30 0RF No Action hydrochlorothiazide 25 mg tablet 25 mg PO DAILY Qty: 90 12RF Hold Instructions: Adverse Reaction Discharge Instructions Additional Instructions: no need to strain urine there is a stent in the left ureter with an attached string which comes out the urethra - as long as the stent is in place, you may see blood in the urine and feel urinary frequency, urgency and discomfort when you urinate followup in my office in 5 to 7 days for stent removal followup appt @ 6 weeks for renal ultrasound Activity:: Activity as Tolerated Shower/Bathe:: 24 hours Diet:: As Tolerated DS: Diagnosis Discharge Diagnosis (1) Left ureteral stone: Status: Acute
--- NOTE | 2023-09-11 14:35 | W.PM.OP ---
Date of service: 09/11/23 Time of Service: 14:35 Operative Note Operative Note DATE OF PROCEDURE: 09/11/23 PRE-OP DIAGNOSIS: left ureteral stone POST-OP DIAGNOSIS: same PROCEDURE: cystoscopy, left retrograde pyelogram, left ureteroscopy with stone extraction, insert left ureteral stent SURGEON: Gideon Traore ANESTHESIA TYPE: Local By Surgeon and General LMA/ETT Refer to Anesthesia Record ESTIMATED BLOOD LOSS: 5 PATHOLOGY: other (stone for chemical analysis) COMPLICATIONS: None Patient was transported to: PACU Patient's condition: stable Implants: 6 [place] by 22 to 30 cm left ureteral stone Indications: This is a 72-year-old woman who developed left lower quadrant pain and chills about a month ago. At first, she believed it was a reaction to a recent COVID vaccination. She had persistent intermittent symptoms and she was seen at the primary care provider's office. There was a suspicion for diverticulitis, so a CT scan with contrast was obtained. Diverticulitis was not found but there was a left distal ureteral stone. Given that the patient is immunocompromised and she described symptoms concerning for rigors and chills, we expedited her trip to the operating room for ureteroscopy. Findings: left distal ureteral stone Procedure Description: The patient was brought to the operating room on 09/11/2023. She was given preoperative IV antibiotics. After successful induction of general anesthesia, she was placed in the dorsal lithotomy position. Her genitalia and perineum were prepped and draped with Betadine. 2% Xylocaine jelly was instilled into the urethra to act as a local anesthetic. Pelvic examination revealed prolapse with a significant cystocele and rectocele. A 22 [place] rigid cystoscope was passed through the urethra into the bladder. The bladder was inspected with a 30 degree lens. The base of the bladder had descended somewhat consistent with the cystocele. The remainder of the bladder was smooth-walled with no papillary or nodular lesions. Both ureteral orifices were identified. No blood was seen coming from either side. The left orifice was cannulated with a 5 [place] access catheter and a retrograde pyelogram was obtained by injecting Omnipaque through the access catheter under fluoroscopic guidance. The filling defect was outlined in the left distal ureter. A guidewire was then passed through the lumen of the access catheter and the wire was advanced up the ureter. The catheter was removed leaving the wire in place. A semirigid ureteroscope was then advanced through the urethra into the bladder. I was able to advance the scope up the left ureter and a yellow-tinged stone was visualized in the distal ureter. The stone was floating freely in the ureter, so I was able to grasp it and a 0 tip stone basket and remove it in its entirety. The stone was then sent to pathology for chemical analysis. We then elected to place a left ureteral stent. We chose a 6 [place] variable length stent and advanced it over the wire. The proximal end of the stent was curled in the renal pelvis and the distal end was curled in the bladder. The safety string was left in place and brought through the urethra. This ended the string was then tucked into the patient's vaginal cavity. We will plan to remove the ureteral stent in 5 to 7 days. The patient tolerated this procedure well with no complications. She was taken to the recovery room in stable condition.
--- NOTE | 2023-09-11 14:36 | DI.RAD_ITS ---
Exam(s) XR RETROGRADE IN OR EXAM: XR RETROGRADE IN OR CLINICAL HISTORY: Left ureteral stone. TECHNIQUE: Fluoroscopy was provided for the referring physician for guidance with performing pain re trograde procedure. COMPARISON: No exams were available for comparison FINDINGS: Please see procedure note for details. Fluoro time: 39.4 seconds RADIATION DOSE DELIVERED: debra La=5.59 mGy
[2023-09-11] MEDS: Phenazopyridine 200 MG TAB PO (15:35)
--- NOTE | 2023-09-11 15:58 | W.ANESPOSTOP ---
Postoperative Evaluation Date, Time and Location Date Performed: 09/11/23 Time Performed: 15:58 Patient Location: Day Surgery Unit Vital Signs Most Recent Imported Vital Signs: Most Recent Vital Signs Temp Pulse Resp BP Pulse Ox 36.4 C L 62 18 130/94 H 96 09/11/23 15:07 09/11/23 15:18 09/11/23 15:18 09/11/23 15:18 09/11/23 15:18 Pain Score Most Recent Pain Score: Most Recent Pain Score Pain Level 0 09/11/23 15:18 Assessment Mental Status: Awake (Alert & Oriented to Patient Baseline) Airway and Respiratory Function: Patent airway with normal (patient baseline) respiratory exam Cardiovascular Function: Hemodynamically Stable Hydration Status: Adequately Hydrated Nausea & Vomiting: No Nausea or Vomiting Pain: Pt. Denies Any Pain Peripheral Nerve Block: Patient did not receive a nerve block
[2023-09-17 23:20] LABS: Source: Left Ureter
== END 2023-09-11 16:06 | disposition home or self-care (01) ==
PROVIDERS: PCP Family Medicine; Visit Provider Urology
PROC: (CPT 52352; principal; 2023-09-11 12:30)
DX: N20.1 Calculus of ureter (principal); D84.9 Immunodeficiency, unspecified; E21.3 Hyperparathyroidism, unspecified; Z79.899 Other long term (current) drug therapy
CPT/HCPCS: 52352; 52332; 74420; 82365; J0690; J1885; J2001; J2405; J2704; Q9967

== ENCOUNTER → 2023-09-17 09:14 | Outpatient (BNVA) | payer MEDICARE, SELFPAY | PROVIDERS: PCP Family Medicine; Referring Provider Family Medicine; Visit Provider Nurse Practitioner Gerontology | DX: Z46.6 Encounter for fitting and adjustment of urinary device (principal); N20.0 Calculus of kidney | CPT/HCPCS: 99211 ==

== ENCOUNTER → 2023-11-05 13:43 | Outpatient (BNVA) | payer MEDICARE, SELFPAY | PROVIDERS: PCP Family Medicine; Referring Provider Family Medicine; Visit Provider Urology | DX: N20.0 Calculus of kidney (principal); N20.1 Calculus of ureter | CPT/HCPCS: 76775 ==

== ENCOUNTER 2023-11-21 03:57 | Outpatient (CLI) | payer MEDICARE, SELFPAY | END 2023-11-21 03:58 | disposition home or self-care (01) | LOC: LOS 03:57 | PROVIDERS: PCP Family Medicine; Visit Provider Student in an Organized Health Care Education/Training Program | DX: E87.5 Hyperkalemia (principal) | CPT/HCPCS: 36415; 84132 ==

== ENCOUNTER → 2023-12-06 04:38 | Outpatient (CLI) | payer MEDICARE, SELFPAY ==
--- NOTE | 2023-12-06 | DI.DEXA_ITS ---
Exam(s) XR DEXA BONE DENSITY W/WO SYEDA EXAM: XR DEXA BONE DENSITY W/WO SYEDA CLINICAL HISTORY: HX PRIMARY HYPERPARATHYROIDISM, E21.3, POSTMENOPAUSAL TECHNIQUE: COMPARISON: DX DEXA BONE DENSITY WITH SYEDA from 02/26/2018 FINDINGS: Lateral Spine Image: Unremarkable. No compression deformities identified. Left hip: Total T-Score: -1.5. This compares to -0.7 on the prior examination. Total Z-Score: 0.6 T- and Z-scores: Findings are consistent with osteopenia. Lumbar Spine: Total T-Score: -1.4. -0.7 on the prior examination. Total Z-Score: 1.0 T- and Z-scores: Findings are consistent with osteopenia. IMPRESSION: No evidence of osteoporosis.
== END ==
PROVIDERS: PCP Family Medicine; Visit Provider Student in an Organized Health Care Education/Training Program
DX: E21.3 Hyperparathyroidism, unspecified (principal); Z13.820 Encounter for screening for osteoporosis
CPT/HCPCS: 77080

== ENCOUNTER 2024-02-20 05:13 | Outpatient (CLI) | payer MEDICARE, SELFPAY ==
[2024-02-20 12:21] LABS: Absolute Basophil Count 0.04 10^3/uL (0.0-0.2); Absolute Eosinophil Count 0.16 10^3/uL (0.0-0.7); Absolute Lymphocyte Count 2.11 10^3/uL (1.2-3.4); Absolute Monocyte Count 0.42 10^3/uL (0.1-0.8); Absolute Neutrophil Count 2.71 10^3/uL (1.2-6.7); Basophils % 0.7 %; Eosinophils % 2.9 %; HCT 39.3 % (36.0-46.0); HGB 12.9 g/dL (11.2-15.7); Lymphocytes % 38.8 %; MCH 29.4 pg (27.0-33.0); MCHC 32.8 % (32.0-36.0); MCV 90 fL (80-95); MPV 10.8 fL (8.0-11.0); Monocytes % 7.7 %; Neutrophils % 49.9 %; Platelet Count 187 10^3/uL (130-400); RBC 4.39 10^6/uL (3.93-5.22); RDW 12.8 % (11.7-14.6); RDW-SD 42.2 fL; WBC 5.44 10^3/uL (4.4-10.8)
[2024-02-20 12:33] LABS: ALT 22 U/L (14-59); AST 15 U/L (15-37); Albumin 3.9 g/dL (3.4-5.0); Alkaline Phosphatase 87 U/L (46-116); Anion Gap 6.3 mmol/L (3-11); BUN 15 mg/dL (7-18); Bilirubin, Total 0.4 mg/dL (0.2-1.0); CO2 29.7 mmol/L (21.0-32.0); CREATININE 0.9 mg/dL (0.55-1.02); Calcium 10.1 mg/dL (8.5-10.1); Chloride 106 mmol/L (98-107); Estimated GFR 67.08 (mL/min/1.73m2); Glucose 95 mg/dL (74-106); Potassium 4.9 mmol/L (3.5-5.1); Sodium 142 mmol/L (136-145); Total Protein 6.9 g/dL (6.4-8.2)
[2024-02-20 12:38] LABS: C-Reactive Protein < 0.50 mg/dL (<or=0.5)
== END 2024-02-20 05:14 | disposition home or self-care (01) ==
LOC: LOS 05:13
PROVIDERS: PCP Family Medicine; Visit Provider Internal Medicine Rheumatology
DX: E83.52 Hypercalcemia (principal)
CPT/HCPCS: 36415; 80048; 80053; 85025; 86140

== ENCOUNTER → 2024-03-18 04:29 | Outpatient (CLI) | payer MEDICARE, SELFPAY ==
--- NOTE | 2024-03-18 07:00 | DI.MAMMO_ITS ---
Exam(s) MAMMO SCREENING EXAM: MAMMO SCREENING CLINICAL HISTORY: screening,Z12.39 TECHNIQUE: Bilateral full field digital CC and MLO mammographic images were obtained with 3D tomosyn thesis and utilizing computer aided detection (CAD). COMPARISON: Available for comparison. FINDINGS: Masses/Architectural Distortion: There are bilateral breast nodules present. Some show internal coar se calcification. No suspicious nodules are seen. No areas of architectural distortion are present. Microcalcifications: No suspicious pleomorphic-type are seen. Skin Thickening/Nipple Retraction: None. IMPRESSION: 1. No significant interval change with no specific features of malignancy noted. 2. Unless there is more urgent need, screening mammography is recommended, as per [place] [employer] guidelines. BI-RADS Category 2 - Benign Findings Breast Density - Category B - Scattered areas of fibroglandular density Breast density category C or D implies that the patient has dense breast tissue. Dense breast tissue is very common and is not abnormal but dense breast tissue can make it harder to find cancer on a ma mmogram. Also, dense breast tissue may increase their breast cancer risk. This information about the result of the mammogram report was provided to the patient to raise their awareness. Use this report when you speak with the patient about their risks for breast cancer, which includes their family hist ory. At that time, you may recommend for more screening tests (Ultrasound or MRI) as they might be us eful based on their risk. A negative radiographic report should not delay biopsy if a dominant or clinically suspicious mass is present. Up to ten percent of cancers are not identified on mammography. A negative report may reinforce clinical impression. Adenosis and dense breasts may obscure an underlying neoplasm. False positive reports average 6 to 10%. Patient will receive a letter notifying them of these results.
== END ==
PROVIDERS: PCP Family Medicine; Visit Provider Family Medicine
DX: Z12.31 Encounter for screening mammogram for malignant neoplasm of breast (principal)
CPT/HCPCS: 77063; 77067

== ENCOUNTER 2024-08-18 03:32 | Outpatient (CLI) | payer MEDICARE, SELFPAY ==
[2024-08-18 12:21] LABS: Abs Immature Grans 0.01 10^3/uL (0.0-0.06); Absolute Basophil Count 0.03 10^3/uL (0.0-0.2); Absolute Eosinophil Count 0.11 10^3/uL (0.0-0.7); Absolute Lymphocyte Count 1.75 10^3/uL (1.2-3.4); Absolute Neutrophil Count 3.26 10^3/uL (1.2-6.7); Basophils % 0.5 %; HCT 40.9 % (36.0-46.0); Immature Grans % 0.2 %; Lymphocytes % 31.5 %; MCH 29.3 pg (27.0-33.0); MCHC 31.8 % (32.0-36.0); MCV 92 fL (80-95); Monocytes % 7.2 %; Neutrophils % 58.6 %; Platelet Count 187 10^3/uL (130-400); RBC 4.44 10^6/uL (3.93-5.22); RDW-SD 43.8 fL; WBC 5.56 10^3/uL (4.4-10.8)
[2024-08-18 12:36] LABS: C-Reactive Protein < 0.50 mg/dL (<or=0.5)
[2024-08-18 12:52] LABS: ALT 21 U/L (14-59); AST 15 U/L (15-37); Albumin 3.9 g/dL (3.4-5.0); Alkaline Phosphatase 77 U/L (46-116); Anion Gap 8.3 mmol/L (3-11); BUN 21 mg/dL (7-18); Bilirubin, Total 0.39 mg/dL (0.2-1.0); CO2 28.7 mmol/L (21.0-32.0); CREATININE 0.9 mg/dL (0.55-1.02); Calcium 9.5 mg/dL (8.5-10.1); Chloride 108 mmol/L (98-107); Estimated GFR 67.08 (mL/min/1.73m2); Glucose 96 mg/dL (74-106); Sodium 145 mmol/L (136-145); TSH (W/Ref FT4) 1.59 uIU/mL (0.36-3.74); Total Protein 7.1 g/dL (6.4-8.2)
[2024-08-18 14:04] LABS: Vitamin B12 497 pg/mL (193-986)
== END 2024-08-18 03:33 | disposition home or self-care (01) ==
LOC: LOS 03:33
PROVIDERS: Internal Medicine Rheumatology; PCP Family Medicine; Visit Provider Family Medicine
DX: E78.00 Pure hypercholesterolemia, unspecified (principal); E03.9 Hypothyroidism, unspecified; D51.1 Vitamin B12 deficiency anemia due to selective vitamin B12 malabsorption with proteinuria; I10 Essential (primary) hypertension; L40.50 Arthropathic psoriasis, unspecified; Z79.899 Other long term (current) drug therapy
CPT/HCPCS: 36415; 80053; 82607; 84443; 85025; 86140

== ENCOUNTER 2025-01-01 02:36 | Outpatient (CLI) | payer MEDICARE, SELFPAY ==
[2025-01-01 13:17] LABS: Vitamin D 25 Total 23 ng/mL (30-100)
== END 2025-01-01 02:37 | disposition home or self-care (01) ==
LOC: LOS 02:36
PROVIDERS: PCP Family Medicine; Visit Provider Family Medicine
DX: E55.9 Vitamin D deficiency, unspecified (principal)
CPT/HCPCS: 36415; 82306

== ENCOUNTER 2025-02-26 03:06 | Outpatient (CLI) | payer MEDICARE, SELFPAY ==
[2025-02-26 12:31] LABS: Abs Immature Grans 0.01 10^3/uL (0.0-0.06); Absolute Basophil Count 0.03 10^3/uL (0.0-0.2); Absolute Eosinophil Count 0.14 10^3/uL (0.0-0.7); Absolute Monocyte Count 0.48 10^3/uL (0.1-0.8); Absolute Neutrophil Count 2.75 10^3/uL (1.2-6.7); Basophils % 0.6 %; Eosinophils % 2.6 %; HCT 42.3 % (36.0-46.0); HGB 13.7 g/dL (11.2-15.7); Immature Grans % 0.2 %; MCH 29.6 pg (27.0-33.0); MCHC 32.4 % (32.0-36.0); MCV 91 fL (80-95); MPV 10.4 fL (8.0-11.0); Monocytes % 8.9 %; Neutrophils % 50.7 %; Platelet Count 199 10^3/uL (130-400); RBC 4.63 10^6/uL (3.93-5.22); RDW 12.9 % (11.7-14.6); RDW-SD 43.2 fL; WBC 5.41 10^3/uL (4.4-10.8)
[2025-02-26 12:45] LABS: C-Reactive Protein < 0.50 mg/dL (<or=0.5)
[2025-02-26 13:16] LABS: ALT 17 U/L (14-59); AST 17 U/L (15-37); Alkaline Phosphatase 86 U/L (46-116); Anion Gap 4.6 mmol/L (3-11); BUN 17 mg/dL (7-18); Bilirubin, Total 0.4 mg/dL (0.2-1.0); CO2 30.4 mmol/L (21.0-32.0); CREATININE 0.8 mg/dL (0.55-1.02); Calcium 9.8 mg/dL (8.5-10.1); Calculated LDL 84 mg/dL (<100); Chloride 105 mmol/L (98-107); Cholesterol 172 mg/dL (<200); Estimated GFR 76.79 (mL/min/1.73m2); Glucose 105 mg/dL (74-106); HDL Cholesterol 73 mg/dL (>or=50); Potassium 4.3 mmol/L (3.5-5.1); Sodium 140 mmol/L (136-145); Total Protein 7.2 g/dL (6.4-8.2); Triglyceride 78 mg/dL (<150); Vitamin B12 446 pg/mL (193-986)
== END 2025-02-26 03:07 | disposition home or self-care (01) ==
LOC: LOS 03:06
PROVIDERS: Internal Medicine Rheumatology; PCP Family Medicine; Visit Provider Family Medicine
DX: I10 Essential (primary) hypertension (principal); K22.70 Barrett's esophagus without dysplasia; K21.00 Gastro-esophageal reflux disease with esophagitis, without bleeding
CPT/HCPCS: 36415; 80053; 80061; 85027; 82607; 85025; 86140

== ENCOUNTER 2025-04-01 00:20 | Outpatient (CLI) | payer MEDICARE, SELFPAY ==
--- NOTE | 2025-04-01 07:52 | DI.MAMMO_ITS ---
Exam(s) MAMMO SCREENING EXAM: MAMMO SCREENING CLINICAL HISTORY: screening,Z12.39 TECHNIQUE: Mammograms were interpreted according to the usual protocol including computer analysis with CAD system, tomosynthesis and C-view imaging. COMPARISON: 2016 through 2023 FINDINGS: The breasts are composed of scattered fibroglandular densities, Breast Density category B. No suspicious masses or suspicious microcalcifications are seen. Stable bilateral nodules. Stable coarse calcification associated with a fibroadenoma. No skin thickening or abnormal axillary lymph nodes are seen. There has been no significant change from prior exams. IMPRESSION: BI-RADS Category 2 - Benign Findings Yearly screening mammography is recommended. Breast Density - Category B - There are scattered areas of fibroglandular density. Breast density Category C or D implies that the patient has dense breast tissue. Dense breast tissue can make it harder to find cancer on a mammogram. Dense breast tissue is also associated with an increased risk of breast cancer. This information about the result of the mammogram report was provided to the patient to raise their awareness. Use this report when you speak with the patient about their risks for breast cancer, which includes their family history. At that time, you may recommend additional screening tests (Ultrasound or MRI) as these tests may add significant information. A negative radiographic report should not delay biopsy if a dominant or clinically suspicious mass is present. Up to ten percent of cancers are not identified on mammography. A negative report may reinforce clinical impression. Adenosis and dense breasts may obscure an underlying neoplasm. False positive reports average 6 to 10%. Patient will receive a letter notifying them of these results.
== END 2025-04-01 00:40 ==
PROVIDERS: PCP Family Medicine; Visit Provider Family Medicine
DX: Z12.31 Encounter for screening mammogram for malignant neoplasm of breast (principal); R92.323 Mammographic fibroglandular density, bilateral breasts
CPT/HCPCS: 77063; 77067

== ENCOUNTER 2025-07-09 00:32 | Outpatient (CLI) | payer MEDICARE, SELFPAY ==
[2025-07-09 14:36] LABS: Vitamin D 25 Total 48 ng/mL (30-100)
[2025-07-09 22:48] LABS: Hepatitis C Ab w Rflx HCV PCR Negative (Negative)
== END 2025-07-09 00:33 | disposition home or self-care (01) ==
LOC: LOS 00:32
PROVIDERS: PCP Family Medicine; Visit Provider Family Medicine
DX: Z11.59 Encounter for screening for other viral diseases (principal); E55.9 Vitamin D deficiency, unspecified
CPT/HCPCS: 36415; 82306; 86803

== ENCOUNTER 2025-09-08 00:50 | Outpatient (CLI) | payer MEDICARE, SELFPAY ==
[2025-09-08 08:29] LABS: Abs Immature Grans 0.02 10^3/uL (0.0-0.06); HCT 40.8 % (36.0-46.0); HGB 13.1 g/dL (11.2-15.7); Immature Grans % 0.3 %; MCH 29.2 pg (27.0-33.0); MCHC 32.1 % (32.0-36.0); MCV 91 fL (80-95); MPV 9.5 fL (8.0-11.0); Platelet Count 191 10^3/uL (130-400); RBC 4.49 10^6/uL (3.93-5.22); RDW 12.7 % (11.7-14.6); RDW-SD 42.2 fL; WBC 6.45 10^3/uL (4.4-10.8)
[2025-09-08 08:55] LABS: C-Reactive Protein < 0.50 mg/dL (<=0.50)
[2025-09-08 08:56] LABS: ALT 14 U/L (10-49); AST 17 U/L (<34); Albumin 4.6 g/dL (3.2-5.0); Alkaline Phosphatase 72 U/L (46-116); Anion Gap 8.3 mmol/L (3-11); BUN 25 mg/dL (9-23); Bilirubin, Total 0.50 mg/dL (0.2-1.2); CO2 28.7 mmol/L (20.0-31.0); Calcium 9.7 mg/dL (8.3-10.6); Chloride 106 mmol/L (98-107); Glucose 107 mg/dL (74-106); Potassium 5.0 mmol/L (3.5-5.1); Sodium 143 mmol/L (136-145); Total Protein 7.0 g/dL (5.7-8.2)
== END 2025-09-08 00:51 | disposition home or self-care (01) ==
LOC: LBO 00:50
PROVIDERS: PCP Family Medicine; Visit Provider Internal Medicine Rheumatology
DX: L40.50 Arthropathic psoriasis, unspecified (principal)
CPT/HCPCS: 36415; 80053; 85025; 86140